=== PATIENT | male | born 1975 | race Caucasian/White ===

== ENCOUNTER → 2018-10-12 | Outpatient (CLI) | payer BC ==
--- NOTE | 2018-10-12 10:59 | US ---
EXAMINATION TYPE: US liver DATE OF EXAM: 10/12/2018 COMPARISON: NONE CLINICAL HISTORY: R79.9 Abnormal labs. EXAM MEASUREMENTS: Liver Length: 18.6 cm Gallbladder Wall: 0.2 cm CBD: 0.4 cm Right Kidney: 12.1 x 7.2 x 5.8 cm Pancreas: Obscured by bowel gas Liver: heterogeneous, increased attenuation, enlarged Gallbladder: wnl Evidence for sonographic Dillard's sign: No CBD: wnl Right Kidney: wnl IMPRESSION: 1. Hepatomegaly with heterogeneous pattern which is nonspecific and can be seen with hepatic steatosi s, hepatitis or diffuse hepatocellular disease. Correlate clinically.
== END | disposition home or self-care (01) ==
LOC: RADUSWWP 10:21
PROVIDERS: ATTEND Family Medicine
DX: R16.0 Hepatomegaly, not elsewhere classified (principal)
CPT/HCPCS: 76705

== ENCOUNTER → 2019-08-23 | Outpatient (CLI) | payer BC ==
--- NOTE | 2019-08-23 12:47 | CT ---
EXAMINATION TYPE: CT cervical spine wo con DATE OF EXAM: 08/23/2019 COMPARISON: None HISTORY: 44-year-old male neck pain post fall TECHNIQUE: Contiguous axial scanning of the cervical spine without IV contrast. Coronal and sagittal reconstructions performed. CT DLP: 2132.6 mGycm Automated exposure control for dose reduction was used. FINDINGS: Some asymmetric prominence to the left palatine tonsils with punctate calcifications, likely tonsilla r hypertrophy with prior infection. No craniocervical junction remotely, predental space widening, or prevertebral soft tissue swelling. Prominent artifacts relating to the patient's shoulders limit the C5-T1 levels. Allowing for this billingsley itation, no discrete fracture is identified. There is facet and uncovertebral joint degenerative change and mild to moderate degenerative disc dis ease. Exclude mild narrowing of the spinal canal at C5-C6 and C6/C7. At C5-C6, there is moderate to severe right and mild left neuroforaminal stenosis. IMPRESSION: 1. THE PATIENT WAS RESCANNED WITH HIGHER KVP DUE TO EXCESSIVE ARTIFACTS RELATED TO PATIENT SIZE. THER E ARE PERSISTENT ARTIFACTS LIMITING ASSESSMENT FROM THE C5 THROUGH THE T1 LEVELS. 2. ALLOWING FOR THIS LIMITATION, NO ACUTE FRACTURE OR MALALIGNMENT IS IDENTIFIED. 3. MODERATE SPONDYLOTIC CHANGE C5-C7 LEVELS. POSSIBLE UNDERLYING MILD SPINAL CANAL NARROWING ALONG TH KERA LEVELS. ON THE RIGHT AT C5-C6, THERE IS MODERATE TO SEVERE NEUROFORAMINAL STENOSIS. 4. IF PAIN IS DISPROPORTIONATE, CONSIDERATION COULD BE GIVEN TO MRI.
== END | disposition home or self-care (01) ==
LOC: RADCTMAIN 11:48
PROVIDERS: ATTEND Family Medicine
DX: M48.02 Spinal stenosis, cervical region (principal); M47.812 Spondylosis without myelopathy or radiculopathy, cervical region; G58.8 Other specified mononeuropathies
CPT/HCPCS: 72125

== ENCOUNTER 2019-09-20 14:12 | Inpatient (IN) | payer BC ==
[2019-09-20 16:58] VITALS: BMI 38.0
[2019-09-20] MEDS: methylPREDNISolone SOD SUCCI 125 MG/2 ML VIAL IV SCH ×2 (18:38→22:58)
[2019-09-20] MEDS: HYDROmorphone 1 MG/ML 1 ML SYRINGE IVP PRN ×2 (19:03→22:58)
[2019-09-20] MEDS: LISINOPRIL 20 MG TAB PO SCH (21:13)
[2019-09-20] MEDS: ATORVASTATIN 20 MG TAB PO SCH (21:13)
[2019-09-20] MEDS: DIVALPROEX 500 MG TABLET.DR PO SCH (21:13)
[2019-09-21] MEDS: HYDROmorphone 1 MG/ML 1 ML SYRINGE IVP PRN ×6 (03:16→20:52)
[2019-09-21] MEDS: LISINOPRIL 20 MG TAB PO SCH ×2 (10:01→20:51)
[2019-09-21] MEDS: ASPIRIN 81 MG PO SCH (10:01)
[2019-09-21] MEDS: amLODIPine 5 MG TAB PO SCH (10:01)
[2019-09-21] MEDS: methylPREDNISolone SOD SUCCI 125 MG/2 ML VIAL IV SCH ×3 (10:01→23:50)
[2019-09-21] MEDS: DIVALPROEX 500 MG TABLET.DR PO SCH ×2 (10:02→20:51)
[2019-09-21] MEDS: PANTOPRAZOLE 40 MG TABLET PO SCH (10:03)
[2019-09-21] MEDS ORDERED: PREGABALIN 75 MG CAP PO SCH (13:30)
--- NOTE | 2019-09-21 13:42 | HP ---
HISTORY AND PHYSICAL This 44-year-old white male admitted for 23-hours for ir-retractable pain, unable to lift his left arm with no limited movement in his arm, unable to make a grasp. He is dropping everything in his left arm. He failed trigger point shots and failed outpatient treatment with steroids and anti-inflammatories. He is unable to move his neck. He had a recent cervical spine CAT scan, moderate to severe right and mild left neuroforaminal stenosis. Due to inability to move his head and neck, and left his arms, he was admitted for epidural steroid injection and IV steroids and IV pain medicines. He is requiring large amounts of pain medicine and steroids in the hospital, waiting for cervical epidural and Dr. Ahmadi has evaluation as well as Radiology evaluation. Please see CAT scan of the cervical spine done on 08/26/2019. He has a history of hypertension, dyslipidemia, obesity, mood disorder, GERD. He is on: 1. Protonix 40 mg daily. 2. Atorvastatin 20 mg daily. 3. Depakote 500 b.i.d. 4. Lisinopril 20 mg b.i.d. 5. Aspirin 81 mg daily. REVIEW OF SYSTEMS: Fourteen-point review of systems negative except for limited motion of his arms and turning of his neck due to serious severe muscle spasms and cervical neuropathy at C5- C6 seen on CAT scan. He needs an epidural shot, possibly surgery. He will be admitted with IV steroids and pain medications. PHYSICAL EXAMINATION: VITAL SIGNS: Temp 98.6, blood pressure 130s over 80s up to 150s over 80s, O2 95% on room air. MUSCULOSKELETAL: Tug Hand strength is 3/5 in his left hand for 3-1/2 to 4/5 on his right hand. Significant tenderness to palpation bilateral cervical spinal muscles radiating down to the shoulders posteriorly. Limited range of motion of the neck 20 degrees to the left, 10 degrees to the right. ENDOCRINE: BMI is over 40. PSYCH: He appears anxious and nervous and in serious amount of pain. He looks uncomfortable. CARDIOVASCULAR: S1, S2. GI: Soft. No mass. HEMATOLOGIC: 1 to 2+ pedal edema. ASSESSMENT: 1. Acute cervical radiculopathy of severe nature. 2. Ir-retractable pain syndrome secondary to above. 3. Significant cervical stenosis. He will need IV steroids, IV pain medicines, epidural injection, possible neck surgery. Awaiting Radiology consult and Neurosurgery consult. Remains on IV steroids and IV pain medicine at this time. MMODL / IJN: [id number] /
[2019-09-21] MEDS: tiZANidine 4 MG TAB PO PRN (14:15)
[2019-09-21 15:10] LABS: Basophils # (A) 0.3 k/uL (0-0.2); Basophils % (A) 2 %; Eosinophils # (A) 0.1 k/uL (0-0.7); Eosinophils % (A) 0 %; HCT 42.5 % (39.0-53.0); HGB 14.3 gm/dL (13.0-17.5); Lymphocytes # (A) 0.9 k/uL (1.0-4.8); Lymphocytes % (A) 6 %; MCH 32.2 pg (25.0-35.0); MCHC 33.5 g/dL (31.0-37.0); Mean Platelet Volume 7.2; Monocytes # (A) 0.5 k/uL (0-1.0); Monocytes % (A) 4 %; Neutrophils # (A) 13.6 k/uL (1.3-7.7); Neutrophils % (A) 87 %; Platelet Count 231 k/uL (150-450); RBC 4.43 m/uL (4.30-5.90); RDW 12.2 % (11.5-15.5); WBC 15.6 k/uL (3.8-10.6)
[2019-09-21 15:12] LABS: ALT 79 U/L (21-72); AST 34 U/L (17-59); African American GFR (CKD) >90 (>60 ml/min/1.73 sqM); Albumin 3.8 g/dL (3.5-5.0); Alkaline Phosphatase 49 U/L (38-126); Anion Gap 10 mmol/L; Blood Urea Nitrogen 23 mg/dL (9-20); Calcium 9.6 mg/dL (8.4-10.2); Carbon Dioxide 30 mmol/L (22-30); Chloride 97 mmol/L (98-107); Glucose 289 mg/dL (74-99); Potassium 4.6 mmol/L (3.5-5.1); Sodium 137 mmol/L (137-145); Total Bilirubin 0.4 mg/dL (0.2-1.3); Total Protein 6.3 g/dL (6.3-8.2)
[2019-09-21] MEDS ORDERED: NON FORMULARY DRUG (Omeprazole [Omeprazole] 20 MG) PO SCH (15:30)
[2019-09-21] MEDS ORDERED: amLODIPine 5 MG TAB PO SCH (15:30)
--- NOTE | 2019-09-21 15:31 | P.PAINCN ---
History of Present Illness - Reason for Consult Consult date: 09/21/19 - History of Present Illness This is initial consultation visit for this 44 years old male, with a two-month history of severe neck pain with radiation to the left upper extremity associated with numbness and tingling sensation, the pain is constant and interferes with the quality of life, pain increased significantly over the last couple of weeks, is not relieved with the pain medication patient currently on Dilaudid 1 mg every 4 hours and he is on Zanaflex 4 mg every 8 hours and Lyrica 75 mg, he continued to have severe pain, some weakness in his left upper extremity she denies any fever or night sweats he denies any change in the bowel movements or urination Past Medical History Past Medical History: Cancer, GERD/Reflux, Hypertension, Sleep Apnea/CPAP/BIPAP Additional Past Medical History / Comment(s): neck pain for several several lmonths, testicular cancer, chemotherapy in the past History of Any Multi-Drug Resistant Organisms: None Reported Past Surgical History: Appendectomy Additional Past Surgical History / Comment(s): left leg fracture with repair Past Anesthesia/Blood Transfusion Reactions: No Reported Reaction Past Psychological History: Anxiety Smoking Status: Heavy tobacco smoker Medications and Allergies Home Medications Medication Instructions Recorded Confirmed Type Aspirin EC [Ecotrin Low Dose] 81 mg PO DAILY 09/20/19 09/20/19 History Atorvastatin [Lipitor] 20 mg PO HS 09/20/19 09/20/19 History Divalproex Sodium [Depakote] 500 mg PO BID 09/20/19 09/20/19 History Lisinopril 20 mg PO BID 09/20/19 09/20/19 History Omeprazole 20 mg PO DAILY 09/20/19 09/20/19 History Ubidecarenone [Co Q-10] 100 mg PO DAILY 09/20/19 09/20/19 History amLODIPine [Norvasc] 5 mg PO DAILY 09/20/19 09/20/19 History Allergies Allergy/AdvReac Type Severity Reaction Status Date / Time Penicillins Allergy Unknown Verified 09/20/19 17:08 Childhood Physical Exam Vitals: Vital Signs Temp Pulse Resp BP Pulse Ox 09/21/19 12:00 97.4 F L 76 20 153/88 98 09/21/19 08:00 76 20 09/21/19 04:56 97.6 F 86 18 159/75 96 09/20/19 21:30 98.0 F 94 18 185/89 97 09/20/19 16:24 98.6 F 91 16 137/81 95 Intake and Output 09/21/19 09/21/19 09/21/19 06:59 14:59 22:59 Intake Total 900 Output Total 2 Balance -2 900 Intake: Oral 900 Output: Urine 2 Other: # Voids 4 REVIEW OF ORGAN SYSTEMS: CONSTITUTIONAL: No fevers or chills. No recent weight loss. EYES: History of troubles with vision. No glasses. HEENT: No difficulties with hearing. No nosebleeds. No difficulty swallowing. RESPIRATORY: Past pneumonia. Denies any troubles with breat tammy or dyspnea on exertion. CARDIOVASCULAR: Denies any chest pain, palpitations, or recent heart attacks. GASTROINTESTINAL: Denies fatty food intolerance. Has change in bowel habits and gas bloat. GENITOURINARY: Denies any blood in urine. Has increased urinary frequency. NEUROLOGICAL: Reports numbness and tingling along the left upper extremities. Some weakness in the left hand. MUSCULOSKELETAL: Has neck pain. SKIN: Past t skin cancer. No rash. PSYCHIATRIC: Denies current depression or suicidal thoughts. ENDOCRINE: Denies current thyroid disorders. Denies any blood sugar glucose intolerance. HEME/LYMPHATIC: Denies any lumps and bumps around the neck. History of deep venous thrombosis. ALLERGY/IMMUNOLOGY: No immunoglobulin therapy. No immune deficiencies. BREAST: Denies current breast lumps, pain or nipple discharge. Physical Examinations : Constitutiona : Cooperative , not in acute distress . HEENT : nech : supple , no Lymphadenopathy , normal thyroid size . eyes : no ptosis , no icterus, no photopho chavo . ENT : normal of hearing , normal oropharynx , no Thrush . Respiratory : Chest clear to auscultations Bilaterally , no wheezing , no Rhonchi . Cardiovascula : regular rate and rhythem , S1 , S2 , no S3 , no S4. Gastrointestina : abdomen soft no tenderness , bowel so unds , no organomegally . Genitourinary : Defferred . neurologic : Cranial nerve II to XII intact , no focal neurological deffecit . psychatric : alert , oriented X 3 , appropriate affect , intact judgment and insight . Lymphatic : no Lymphadenopathy . musculoskeltal : Cervical Spine motor stregnth in the deltoid and biceps, normal right side , 4/5 Left side motor stregnth biceps and the wrist extensors normal right side ,4/5 left side . motor stregnth in the triceps muscle . normal Right side , 4/5 Left side Positive paresthesia at the dermatomal distribution left side 5, 6 and 7 deep tendon reflexes normal at the biceps , normal at Brachioradialis , normal at triceps. cervical facet loading test: Positive Bilateraly Spurling test positive left side. Neck distraction test positive left Summer sign positive left side Lumber spine moter stegnth lower extremities ,thigh and legs 5/5 Right side , 5/5 Left side Results CBC & Chem 7: 09/21/19 14:44 09/21/19 14:44 Labs: Abnormal Lab Results - Last 24 Hours (Table) 09/21/19 09/21/19 Range/Units 14:44 14:44 WBC 15.6 H (3.8-10.6) k/uL Neutrophils # 13.6 H (1.3-7.7) k/uL Lymphocytes # 0.9 L (1.0-4.8) k/uL Basophils # 0.3 H (0-0.2) k/uL Chloride 97 L (98-107) mmol/L BUN 23 H (9-20) mg/dL Glucose 289 H (74-99) mg/dL ALT 79 H (21-72) U/L Comments: Computed tomography scan of the cervical spine C5 6 C6 7 degeneration and facet arthropathy at C5 6 foraminal stenosis Assessment and Plan Plan: Assessment and plan= cervical radiculopathy Cervical spinal stenosis. Cervical spondylosis Patient could benefit from cervical epidural steroid injection and C6-7 or C7-T1 under fluoroscopy guidance, the seizure risk and benefits discussed with the patient he agreed with the preceding Time with Patient: Greater than 30 PQRS Measure Charge Sheet PQRS Narrative: Smoking Status Heavy tobacco smoker Blood Pressure [Right Arm] 153/88 Pain Intensity [Left Neck] 9 Pain Intensity 8 Pain Scale Used Numeric (1 - 10) Scale Used Numeric (1 - 10) Home Medications: Ambulatory Orders Aspirin EC [Ecotrin Low Dose] 81 mg PO DAILY 09/20/19 Atorvastatin [Lipitor] 20 mg PO HS 09/20/19 Divalproex Sodium [Depakote] 500 mg PO BID 09/20/19 Lisinopril 20 mg PO BID 09/20/19 Omeprazole 20 mg PO DAILY 09/20/19 Ubidecarenone [Co Q-10] 100 mg PO DAILY 09/20/19 amLODIPine [Norvasc] 5 mg PO DAILY 09/20/19
--- NOTE | 2019-09-21 16:36 | P.CNOR ---
History of Present Illness - [facility] Consult date: 09/21/19 Requesting physician: Bryan Guerrier Consult reason: neck pain, other (Left upper extremity weakness with radiculopa thy) History of present illness: Patient is a very pleasant 44-year-old male who is seen and examined at the bedside for further evaluation for cervical pain with severe left upper extremity radiculopathy and weakness. He states approximately 6 weeks ago he began to experience some pain in the left upper extremity. He's had some ongoing cervical pain. 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 He states approximately a week later, over the past 3 weeks, he has been experiencing worsening pain with the left upper extremity. He states the pain radiates from the cervical spine, over the left shoulder, down the triceps, down the forearm, into the left middle finger, ring finger, and pinky finger. His pain has been debilitating. Yesterday he presented to his primary care provider's office for further evaluation. He was direct admitted to the hospital for further evaluation with orthopedic spine and pain management. He has been started on Solu-Medrol. He presented had a CT of the cervical spine performed in July 2019. He states he is having difficulty working in regular activities of daily living given his symptoms. He has weakness with his left upper extremity. He denies any right upper extremity weakness or radiculopathy. Patient does have a medical history of hypertension, dyslipidemia, obesity, mood disorder, and GERD. Patient has been seen and examined today by pain management who states he would be a candidate for ep idural injections. Past Medical History Past Medical History: Cancer, GERD/Reflux, Hypertension, Sleep Apnea/CPAP/BIPAP Additional Past Medical History / Comment(s): neck pain for several several lmonths, testicular cancer, chemotherapy in the past History of Any Multi-Drug Resistant Organisms: None Reported Past Surgical History: Appendectomy Additional Past Surgical History / Comment(s): left leg fracture with repair Past Anesthesia/Blood Transfusion Reactions: No Reported Reaction Past Psychological History: Anxiety Smoking Status: Heavy tobacco smoker Medications and Allergies Home Medications Medication Instructions Recorded Confirmed Type Aspirin EC [Ecotrin Low Dose] 81 mg PO DAILY 09/20/19 09/20/19 History Atorvastatin [Lipitor] 20 mg PO HS 09/20/19 09/20/19 History Divalproex Sodium [Depakote] 500 mg PO BID 09/20/19 09/20/19 History Lisinopril 20 mg PO BID 09/20/19 09/20/19 History Omeprazole 20 mg PO DAILY 09/20/19 09/20/19 History Ubidecarenone [Co Q-10] 100 mg PO DAILY 09/20/19 09/20/19 History amLODIPine [Norvasc] 5 mg PO DAILY 09/20/19 09/20/19 History Allergies Allergy/AdvReac Type Severity Reaction Status Date / Time Penicillins Allergy Unknown Verified 09/20/19 17:08 Childhood Physical Examination Physical exam: Patient is awake, alert, and oriented 3 Vital signs stable Good chest excursion with deep inspiration and expiration Examination of the cervical spine reveals skin is intact with no abrasions, lacerations, or bruises; no erythema, purulence or signs of infection Stiff and somewhat reduced of motion of the cervical spine with adequate flexion, extension, and bilateral rotation Increased cervical pain throughout range of motion of the cervical spine Cash Analyst strength, thumb strength, interosseous strength, biceps strength, triceps strength, and shoulder strength positive sustained 5/5 strength on the right Motor strength upper extremity is 3/5 including electronic installer, interossei, and thumb extension on the left Motor strength the upper extremity is 4+/5 including biceps, deltoids and triceps on the left Increased pain with shoulder abduction against resistance Biceps reflex 2+ bilaterally and Brachioradialis reflexes 2+ bilaterally No upper extremity hyperreflexia bilaterally Hoffmans sign negative upper extremities bilaterally Results Pertinent studies: CT of the cervical spine taken on 08/23/2019: C5-6 and C6-7 degenerative disc disease; Degenerative disc disease, facet arthropathy, and uncovertebral joint disease resulting in C5-C6 spinal canal narrowing and severe right mild left neural foraminal stenosis; excessive artifact limiting assessment C5-T1 - Labs Labs: Abnormal Lab Results - Last 24 Hours (Table) 09/21/19 09/21/19 Range/Units 14:44 14:44 WBC 15.6 H (3.8-10.6) k/uL Neutrophils # 13.6 H (1.3-7.7) k/uL Lymphocytes # 0.9 L (1.0-4.8) k/uL Basophils # 0.3 H (0-0.2) k/uL Chloride 97 L (98-107) mmol/L BUN 23 H (9-20) mg/dL Glucose 289 H (74-99) mg/dL ALT 79 H (21-72) U/L H & H 09/21/19 Range/Units 14:44 Hgb 14.3 (13.0-17.5) gm/dL Hct 42.5 (39.0-53.0) % Result Diagrams: 09/21/19 14:44 09/21/19 14:44 Assessment and Plan Assessment: Assessment: Cervicalgia Acute severe left upper extremity radiculopathy with weakness Cervical degenerative disc disease C5-6 and C6-7 Cervical facet arthropathy History of hypertension, dyslipidemia, obesity, mood disorder, and GERD (1) Cervicalgia Current Visit: Yes Status: Acute Code(s): M54.2 - CERVICALGIA SNOMED Code(s): 96904777 (2) Left arm weakness Current Visit: Yes Status: Acute Code(s): R29.898 - OTH SYMPTOMS AND SIGNS INVOLVING THE MUSCULOSKELETAL SYSTEM SNOMED Code(s): 420831812 (3) Radiculopathy affecting upper extremity Current Visit: Yes Status: Acute Code(s): M54.10 - RADICULOPATHY, SITE UNSPECIFIED SNOMED Code(s): 47465537 (4) Degeneration of C5-C6 intervertebral disc Current Visit: Yes Status: Acute Code(s): M50.322 - OTHER CERVICAL DISC DEGENERATION AT C5-C6 LEVEL SNOMED Code(s): 46101585 (5) Degeneration of intervertebral disc at C6-C7 level Current Visit: Yes Status: Acute Code(s): M50.323 - OTHER CERVICAL DISC DEGENERATION AT C6-C7 LEVEL SNOMED Code(s): 80109752 (6) Cervical spondylosis Current Visit: Yes Status: Acute Code(s): M47.812 - SPONDYLOSIS W/O MYELOPATHY OR RADICULOPATHY, CERVICAL REGION SNOMED Code(s): 446079832 (7) Hypertension Current Visit: Yes Status: Acute Code(s): I10 - ESSENTIAL (PRIMARY) HYPE RTENSION SNOMED Code(s): 71498412 (8) Dyslipidemia Current Visit: Yes Status: Acute Code(s): E78.5 - HYPERLIPIDEMIA, UNSPECIFIED SNOMED Code(s): 639135809 (9) Obesity (BMI 35.0-39.9 without comorbidity) Current Visit: Yes Status: Acute Code(s): E66.9 - OBESITY, UNSPECIFIED SNOMED Code(s): 411672869 (10) History of mood disorder Current Visit: Yes Status: Acute Code(s): Z86.59 - PERSONAL HISTORY OF OTHER MENTAL AND BEHAVIORAL DISORDERS SNOMED Code(s): 583170391 (11) History of gastroesophageal reflux (GERD) Current Visit: Yes Status: Acute Code(s): Z87.19 - PERSONAL HISTORY OF OTHER DISEASES OF THE DIGESTIVE SYSTEM SNOMED Code(s): 09711662064081 Plan: Plan: 1. After physical examination of the patient, reviewing the previous imaging, further discussion with Dr. Akshat Ahmadi, and further discussion with the patient, we'll currently planned to obtain an MRI of the cervical spine for further evaluation. We'll discuss further treatment options proceeding forward following the completion and review of the cervical MRI. We did discuss he could benefit with treatment from pain management. He has been seen and exam ined by pain management and states he would be a candidate for epidural injections. Patient has agreed to proceed forward injections. At this time it would be okay for the patient to be discharged home if his pain is able to be adequately controlled. If he were to fail conservative treatment options and there are indications which we feel surgical intervention could provide some improvement of the symptoms, we could plan to proceed forward with surgical intervention as early as next week. If the patient is able to be discharged, we may plan have the patient follow-up in approximately 1 week for further treatment and evaluation in the outpatient setting. Following discharge patient may follow-up with Camilo Lilly PA-C or Dr. Akshat Ahmadi at [facility]. Patient does state he has multiple family members who've had been previously treated by Dr. Serna. We did discuss if he would prefer treatment with Dr. Serna, that would be an appropriate plan of care as well. 2. Patient will continue be seen examined by medicine for his other medical diagnoses 3. Patient has been seen examined by pain management who is currently planning to proceed forward epidural injections 4. Patient currently waiting for cervical MRI Time with Patient: Greater than 30 (Including obtaining history, physical examination, reviewing of imaging, and dictation.)
--- NOTE | 2019-09-21 17:05 | MR ---
EXAMINATION TYPE: MR cervical spine wo con DATE OF EXAM: 09/21/2019 COMPARISON: HISTORY: Cervical disc herniation and upper extremity radic TECHNIQUE: Multiplanar, multisequence images of the cervical spine were acquired. Cervical vertebra have normal alignment. There is some degenerative disc space narrowing at C5-6 and C6-7 with slight decreased signal in the discs. There are very small posterior disc bulges at C4-5 C5 -C6 C6-7. At C7-T1 there is a moderate size disc herniation posteriorly on the left side encroaching on the neural foramen. The cervical spinal cord has normal signal pattern. There is no evidence of ed mayela. There is no compression fracture. The brainstem is intact. I see no focal bone destruction. Ther e is no evidence of cervical paraspinal mass. IMPRESSION: Mild spondylotic changes at C5-6 C6-7 with small posterior disc bulging. There is moderate-sized post erior left side C7-T1 disc herniation with neural foraminal impingement. Spinal canal is narrowed to 8 mm at C5-6. No significant stenosis.
[2019-09-21 17:20] LABS: Glucose,Whole Blood 344 mg/dL (75-99)
[2019-09-21] MEDS ORDERED: INSULIN ASPART (NovoLOG) 100 UNIT/ML VIAL SQ SCH (17:30)
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
[2019-09-21] MEDS: GABAPENTIN 300 MG CAP PO SCH (19:13)
[2019-09-21] MEDS: MELOXICAM 7.5 MG TAB PO SCH (19:13)
[2019-09-21 19:48] LABS: Glucose,Whole Blood 319 mg/dL (75-99)
[2019-09-21] MEDS: ATORVASTATIN 20 MG TAB PO SCH (20:51)
[2019-09-21] MEDS: ALPRAZolam 1 MG TAB PO PRN (20:52)
[2019-09-21] MEDS: INSULIN ASPART (NovoLOG) 100 UNIT/ML VIAL SQ SCH (20:53)
[2019-09-21] MEDS ORDERED: DIVALPROEX 500 MG TABLET.DR PO SCH (21:00)
[2019-09-21] MEDS ORDERED: ATORVASTATIN 20 MG TAB PO SCH (21:00)
[2019-09-22] MEDS: HYDROmorphone 1 MG/ML 1 ML SYRINGE IVP PRN ×7 (02:01→23:50)
[2019-09-22 07:14] LABS: Glucose,Whole Blood 189 mg/dL (75-99)
[2019-09-22] MEDS: methylPREDNISolone SOD SUCCI 125 MG/2 ML VIAL IV SCH ×3 (07:55→23:47)
[2019-09-22] MEDS: INSULIN ASPART (NovoLOG) 100 UNIT/ML VIAL SQ SCH ×4 (07:58→20:58)
[2019-09-22 08:37] LABS: ALT 80 U/L (21-72); AST 26 U/L (17-59); African American GFR (CKD) >90 (>60 ml/min/1.73 sqM); Albumin 3.7 g/dL (3.5-5.0); Alkaline Phosphatase 54 U/L (38-126); Anion Gap 7 mmol/L; Blood Urea Nitrogen 35 mg/dL (9-20); Calcium 9.8 mg/dL (8.4-10.2); Carbon Dioxide 34 mmol/L (22-30); Chloride 99 mmol/L (98-107); Glucose 209 mg/dL (74-99); Potassium 4.8 mmol/L (3.5-5.1); Sodium 140 mmol/L (137-145); Total Bilirubin 0.3 mg/dL (0.2-1.3)
[2019-09-22 08:50] LABS: Basophils # (A) 0.2 k/uL (0-0.2); Basophils % (A) 1 %; Eosinophils % (A) 0 %; HCT 41.8 % (39.0-53.0); HGB 13.6 gm/dL (13.0-17.5); Lymphocytes % (A) 6 %; MCH 31.1 pg (25.0-35.0); MCHC 32.6 g/dL (31.0-37.0); MCV 95.4 fL (80.0-100.0); Mean Platelet Volume 6.6; Monocytes # (A) 0.7 k/uL (0-1.0); Monocytes % (A) 4 %; Neutrophils # (A) 14.4 k/uL (1.3-7.7); Neutrophils % (A) 88 %; Platelet Count 237 k/uL (150-450); RBC 4.39 m/uL (4.30-5.90); RDW 12.3 % (11.5-15.5); WBC 16.4 k/uL (3.8-10.6)
[2019-09-22] MEDS: GABAPENTIN 300 MG CAP PO SCH ×3 (08:53→20:53)
[2019-09-22] MEDS: amLODIPine 5 MG TAB PO SCH (08:53)
[2019-09-22] MEDS: LISINOPRIL 20 MG TAB PO SCH ×2 (08:53→20:53)
[2019-09-22] MEDS: DIVALPROEX 500 MG TABLET.DR PO SCH ×2 (08:53→22:04)
[2019-09-22] MEDS: MELOXICAM 7.5 MG TAB PO SCH (08:53)
[2019-09-22] MEDS: PANTOPRAZOLE 40 MG TABLET PO SCH (08:53)
[2019-09-22] MEDS: ASPIRIN 81 MG PO SCH (09:17)
--- NOTE | 2019-09-22 09:18 | P.PN ---
Subjective Progress Note Date: 09/22/19 Principal diagnosis: Left upper extremity weakness with radiculopathy The patient is a 44-year-old male who presented to the hospital with neck pain and increasing weakness to the left upper extremity. Patient was evaluated yesterday and a cervical MRI was ordered. Patient was also seen by pain management and is currently scheduled for a injection by anesthesia today. Today, the patient states that he is still in severe pain without much relief since admission. No new complaints today. Objective - Vital Signs Vital signs: Vital Signs Temp 98.6 F 09/22/19 05:00 Pulse 86 09/22/19 05:00 Resp 16 09/22/19 05:00 BP 155/79 09/22/19 05:00 Pulse Ox 95 09/22/19 05:00 Intake & Output 09/21/19 09/22/19 09/22/19 18:59 06:59 18:59 Intake Total 900 2120 Balance 900 2120 Intake: Oral 900 2120 Other: Voiding Method Toilet # Voids 2 - Exam The patient is a pleasant 44-year-old male who is in no acute distress. He is alert and oriented 3. Exam of the cervical spine reveals the skin is intact with no abrasions, ecchymosis or erythema. Stiff and somewhat reduced range of motion of the cervical spine with pain. There is decreased motor strength on the left compared to the right recent increased pain upon shoulder abduction against resistance. No hyperflexia noted. There is decreased sensation to the left upper extremity as well. Circulatory status is intact. Hands are warm and well perfused. Radial pulses are strong bilaterally. Capillary refill <2 seconds. - Labs CBC & Chem 7: 09/22/19 07:51 09/22/19 07:51 Labs: Abnormal Lab Results - Last 24 Hours (Table) 09/21/19 09/21/19 09/21/19 Range/Units 14:44 14:44 17:19 WBC 15.6 H (3.8-10.6) k/uL Neutrophils # 13.6 H (1.3-7.7) k/uL Lymphocytes # 0.9 L (1.0-4.8) k/uL Basophils # 0.3 H (0-0.2) k/uL Chloride 97 L (98-107) mmol/L Carbon Dioxide (22-30) mmol/L BUN 23 H (9-20) mg/dL Glucose 289 H (74-99) mg/dL POC Glucose (mg/dL) 344 H (75-99) mg/dL ALT 79 H (21-72) U/L Total Protein (6.3-8.2) g/dL 09/21/19 09/22/19 09/22/19 Range/Units 19:47 07:12 07:51 WBC 16.4 H (3.8-10.6) k/uL Neutrophils # (1.3-7.7) k/uL Lymphocytes # (1.0-4.8) k/uL Basophils # (0-0.2) k/uL Chloride (98-107) mmol/L Carbon Dioxide (22-30) mmol/L BUN (9-20) mg/dL Glucose (74-99) mg/dL POC Glucose (mg/dL) 319 H 189 H (75-99) mg/dL ALT (21-72) U/L Total Protein (6.3-8.2) g/dL 09/22/19 Range/Units 07:51 WBC (3.8-10.6) k/uL Neutrophils # (1.3-7.7) k/uL Lymphocytes # (1.0-4.8) k/uL Basophils # (0-0.2) k/uL Chloride (98-107) mmol/L Carbon Dioxide 34 H (22-30) mmol/L BUN 35 H (9-20) mg/dL Glucose 209 H (74-99) mg/dL POC Glucose (mg/dL) (75-99) mg/dL ALT 80 H (21-72) U/L Total Protein 6.0 L (6.3-8.2) g/dL Assessment and Plan (1) Cervical spondylosis Current Visit: Yes Status: Acute Code(s): M47.812 - SPONDYLOSIS W/O MYELOPATHY OR RADICULOPATHY, CERVICAL REGION SNOMED Code(s): 731169341 (2) Cervicalgia Current Visit: Yes Status: Acute Code(s): M54.2 - CERVICALGIA SNOMED Code(s): 00779519 (3) Degeneration of C5-C6 intervertebral disc Current Visit: Yes Status: Acute Code(s): M50.322 - OTHER CERVICAL DISC DEGENERATION AT C5-C6 LEVEL SNOMED Code(s): 10780460 (4) Degeneration of intervertebral disc at C6-C7 level Current Visit: Yes Status: Acute Code(s): M50.323 - OTHER CERVICAL DISC DEGENERATION AT C6-C7 LEVEL SNOMED Code(s): 45444650 (5) Left arm weakness Current Visit: Yes Status: Acute Code(s): R29.898 - OTH SYMPTOMS AND SIGNS INVOLVING THE MUSCULOSKELETAL SYSTEM SNOMED Code(s): 379917553 Plan: The clinical and MRI findings were discussed with the patient. The patient is scheduled for a epidural injection by anesthesia services today. We will await The injection and see how the patient's symptoms and pain resolve. If his pain has improved significantly, the patient would like to be discharged home today with follow-up on an outpatient basis either with Dr. Akshat Ahmadi or Dr. Serna. If his pain does not improve after the injection, patient will most likely remain in hospital for further pain management and possible surgical intervention early next week with Dr. Ahmadi or transfer care to Dr. Serna depending on the patient's request. We will continue to follow patient closely and make further recommendations as needed.
[2019-09-22] MEDS ORDERED: LACTATED RINGERS 1,000 ML IV ONE (10:02)
--- NOTE | 2019-09-22 11:04 | P.PCN ---
Date of Procedure: 09/22/19 Procedure(s) Performed: . PROCEDURE 1. Cervical epidural steroid injection under fluoroscopic guidance, C7-T1 (fluoroscopy images available in the radiology department ) 2. Cervical epidurogram. PREOPERATIVE DIAGNOSIS: 1- Cervical herniated Disc Diseases 2- Cervical radiculopathy., 3-cervical spondylosis with cervical Facet arthropathy without myelopathy POSTOPERATIVE DIAGNOSIS: : 1- Cervical herniated Disc Diseases , 2- Cervical radiculopathy. 3-,cervical spondylosis with cervical Facet arthropathy without myelopathy ANESTHESIA: Local anesthesia with lidocaine 1 % , and moderate sedation, with Versed 2 mg and Fentanyl 50 mcg. EBL 0 PROCEDURE INDICATION: The patient with neck pain and radiculitis unresponsive to conservative treatment consents for procedure. PROCEDURE DESCRIPTION / TECHNIQUE: The patient was seen and identified in the preoperative area. Risks, benefits, complications, including but not limited to infections ,bleeding , allergic reactions to the medications ,and not complete pain releife, and alternatives were discussed with the patient, the patient a greed to proceed with the procedure and signed the consent. Patient was taken to the OR and time out was completed. The patient was placed in the prone position on the procedure table. A pillow was placed under the patients chest to increase the cervical interlaminar space. The cervical area was prepped and draped in the usual sterile fashion. Vital signs were closely monitored during the procedure. Conscious sedation was used during the procedure to decrease patients anxiety. Using anterior-posterior fluoroscopy, the C7-T1 interlaminar space was identified and the skin over this site was marked and then infiltrated with 1% lidocaine subcutaneously. Subsequently, a 20-gauge 3-1/2-inch Tuohy epidural needle was inserted and advanced toward the epidural space by means of the ``hanging-drop technique and guided by AP and lateral fluoroscopy. The correct needle position in the epidural space was verified with the injection of 2 mL of the water soluble contrast dye Isovue-200 and observing an excellent epidurogram with the epidural spread of the dye, after negative aspiration for blood and CSF and in the absence of paresthesias. Again after negative aspiration, mixture containing 20 mg Dexamethasone and 2 ml of preservative- free normal saline injected and a washout of epidurogram was seen. Needle was withdrawn intact, skin was cleansed, and bandages were applied. Complications= none. Disposition= patient was placed in supine position and transferred to the recovery room area in stable condition and there was no evidence of upper or lower extremity motor or sensory deficit after the procedure patient was discharged from recovery room after discharge criteria met and home discharge instructions was given by the staff and patient will follow with the pain clinic in 2-4 weeks
[2019-09-22] MEDS: tiZANidine 4 MG TAB PO PRN ×2 (12:04→18:00)
[2019-09-22 12:18] LABS: Glucose,Whole Blood 183 mg/dL (75-99)
--- NOTE | 2019-09-22 12:21 | FL ---
Fluoroscopy INDICATION: Pain FINDINGS: Fluoroscopy time: 6 seconds. Images obtained: One. IMPRESSIONS: 1. Documentation of fluoroscopy.
[2019-09-22 17:09] LABS: Glucose,Whole Blood 300 mg/dL (75-99)
--- NOTE | 2019-09-22 17:10 | P.PN ---
Subjective Progress Note Date: 09/22/19 Patient underwent cervical epidural corticosteroid injection at C7-T1 level. He states that his left arm feels numb, and the pain has improved, but it could be the effect of medication. He still has weakness of the left hand. No new concerns. Patient is tolerating gabapentin and Mobic well. Objective - Vital Signs Vital signs: Vital Signs Temp 98.0 F 09/22/19 11:35 Pulse 89 09/22/19 11:35 Resp 16 09/22/19 11:35 BP 173/95 09/22/19 11:35 Pulse Ox 95 09/22/19 11:35 Intake & Output 09/21/19 09/22/19 09/22/19 18:59 06:59 18:59 Intake Total 900 2120 100 Balance 900 2120 100 Weight 119.748 kg Intake: IV 100 Oral 900 2120 Other: Voiding Method Toilet # Voids 2 1 - Exam Patient's mental status, speech and language functions are normal. Cranial nerves are normal. Muscle strength is normal in the right arm and both legs. On the left side, his deltoid, biceps, triceps, wrist extension, wrist flexion are normal. Finger extension is 4-, interossei 3, overall mainly weakness in C8 root muscles. - Labs CBC & Chem 7: 09/22/19 07:51 09/22/19 07:51 Labs: Abnormal Lab Results - Last 24 Hours (Table) 09/21/19 09/21/19 09/22/19 Range/Units 17:19 19:47 07:12 WBC (3.8-10.6) k/uL Neutrophils # (1.3-7.7) k/uL Carbon Dioxide (22-30) mmol/L BUN (9-20) mg/dL Glucose (74-99) mg/dL POC Glucose (mg/dL) 344 H 319 H 189 H (75-99) mg/dL ALT (21-72) U/L Total Protein (6.3-8.2) g/dL 09/22/19 09/22/19 09/22/19 Range/Units 07:51 07:51 12:17 WBC 16.4 H (3.8-10.6) k/uL Neutrophils # 14.4 H (1.3-7.7) k/uL Carbon Dioxide 34 H (22-30) mmol/L BUN 35 H (9-20) mg/dL Glucose 209 H (74-99) mg/dL POC Glucose (mg/dL) 183 H (75-99) mg/dL ALT 80 H (21-72) U/L Total Protein 6.0 L (6.3-8.2) g/dL Assessment and Plan Assessment: * Acute cervical radiculopathy, probably left C8 nerve root impingement. MRI showed acute cervical disc herniation, left paracentral at C7-T1 level. * Moderate spinal stenosis at C5-6, not symptomatic at this time. Plan: * Patient is status post cervical epidural corticosteroid injection at C7-T1 level. * Patient has developed significant weakness in the left hand. Orthopedic spine following. * PT OT for hand and arm strengthening. * Continue Mobic 15 mg daily for cervical spondylosis and radiculopathy. * Continue gabapentin 300 mg 3 times a day for neuropathic pain. We will stop Lyrica as he states it has not helped much. * Patient will need EMG and nerve conductions of left upper extremity to assess for cervical radiculopathy.
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
[2019-09-22 19:50] LABS: Glucose,Whole Blood 340 mg/dL (75-99)
[2019-09-22 20:16] LABS: Hemoglobin A1C 7.4 % (4.0-6.0)
[2019-09-22] MEDS: ALPRAZolam 1 MG TAB PO PRN (20:53)
[2019-09-22] MEDS: ATORVASTATIN 20 MG TAB PO SCH (20:53)
[2019-09-23] MEDS: HYDROmorphone 1 MG/ML 1 ML SYRINGE IVP PRN ×3 (02:32→08:06)
[2019-09-23] MEDS: tiZANidine 4 MG TAB PO PRN (07:00)
[2019-09-23] MEDS: PANTOPRAZOLE 40 MG TABLET PO SCH (07:00)
[2019-09-23 07:14] LABS: Glucose,Whole Blood 194 mg/dL (75-99)
[2019-09-23] MEDS: INSULIN ASPART (NovoLOG) 100 UNIT/ML VIAL SQ SCH ×2 (07:56→12:43)
[2019-09-23] MEDS: methylPREDNISolone SOD SUCCI 125 MG/2 ML VIAL IV SCH ×2 (07:57→15:04)
[2019-09-23] MEDS: MELOXICAM 7.5 MG TAB PO SCH (08:01)
[2019-09-23] MEDS: GABAPENTIN 300 MG CAP PO SCH (08:01)
[2019-09-23] MEDS: LISINOPRIL 20 MG TAB PO SCH (08:02)
[2019-09-23] MEDS: ASPIRIN 81 MG PO SCH (08:02)
[2019-09-23] MEDS: DIVALPROEX 500 MG TABLET.DR PO SCH (08:02)
[2019-09-23] MEDS: amLODIPine 5 MG TAB PO SCH (08:02)
[2019-09-23] MEDS: ALPRAZolam 1 MG TAB PO PRN (08:02)
[2019-09-23] MEDS: HYDROcodone/APAP 10-325MG 1 EACH TAB PO PRN ×2 (10:37→16:16)
[2019-09-23 11:19] LABS: Glucose,Whole Blood 195 mg/dL (75-99)
--- NOTE | 2019-09-23 11:35 | P.PN ---
Subjective Progress Note Date: 09/23/19 Patient underwent cervical epidural corticosteroid injection at C7-T1 level on 09/22/2019. He still has significant pain. Patient is receiving Dilaudid 1 mg every 3 hours, and Zanaflex. He feels his left hand may be slightly stronger. No new concerns. Patient is tolerating gabapentin and Mobic well. Objective - Vital Signs Vital signs: Vital Signs Temp 98.9 F 09/23/19 07:05 Pulse 84 09/23/19 08:17 Resp 18 09/23/19 08:17 BP 186/88 09/23/19 07:05 Pulse Ox 97 09/23/19 07:05 Intake & Output 09/22/19 09/23/19 09/23/19 18:59 06:59 18:59 Intake Total 100 590 Balance 100 590 Weight 119.748 kg Intake: IV 100 Oral 590 Other: Voiding Method Toilet Toilet # Voids 1 2 - Exam Patient's mental status, speech and language functions are normal. Cranial nerves are normal. Muscle strength is normal in the right arm and both legs. O n the left side, his deltoid, biceps, triceps, wrist extension, wrist flexion are normal. Finger extension is 4, interossei 3, family living educator is 4+. Overall weakness mainly in C8 root muscles. - Labs CBC & Chem 7: 09/22/19 07:51 09/22/19 07:51 Labs: Abnormal Lab Results - Last 24 Hours (Table) 09/22/19 09/22/19 09/22/19 Range/Units 07:51 12:17 17:06 POC Glucose (mg/dL) 183 H 300 H (75-99) mg/dL Hemoglobin A1c 7.4 H (4.0-6.0) % 09/22/19 09/23/19 09/23/19 Range/Units 19:48 07:11 11:19 POC Glucose (mg/dL) 340 H 194 H 195 H (75-99) mg/dL Hemoglobin A1c (4.0-6.0) % Assessment and Plan Assessment: * Acute cervical radiculopathy, with left C8 nerve root impingement. MRI showed acute cervical disc herniation, left paracentral at C7-T1 level. * Moderate spinal stenosis at C5-6, not symptomatic at this time. Plan: * Patient is status post cervical epidural corticosteroid injection at C7-T1 level. * Patient has developed significant weakness in the left hand. Her left hand appears slightly better although still very weak. Orthopedic spine following. * PT OT for hand and arm strengthening. * Continue Mobic 15 mg daily for cervical spondylosis and radiculopathy. * Continue gabapentin 300 mg 3 times a day for neuropathic pain. Patient is off Lyrica as he states it has not helped much. * Patient will need EMG and nerve conductions of left upper extremity to assess for cervical radiculopathy. * If symptoms do not improve, then may need spine surgery. Orthopedic spine surgery following. * Neurology coverage not available on the weekend.
[2019-09-23 12:24] VITALS: BP 189/98; PULSE 79; RESP 16; TEMP 97.4
--- NOTE | 2019-09-23 12:46 | P.PN ---
Progress Note - Text Progress Note Date: 09/23/19 Orthopedic spine: History of present illness: Patient is a very pleasant 44-year-old male who is seen and examined at the bedside for follow-up evaluation for cervical pain with severe left upper extremity radiculopathy and weakness. He states approximately 6 weeks ago he began to experience some pain in the left upper extremity. He's had some ongoing cervical pain. 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 He states approximately a week later, over the past 3 weeks, he has been experiencing worsening pain with the left upper extremity. He states the pain radiates from the cervical spine, over the left shoulder, down the triceps, down the forearm, into the left middle finger, ring finger, and pinky finger. His pain has been debilitating. Thursday he presented to his primary care provider's office for further evaluation. He was direct admitted to the hospital for further evaluation with orthopedic spine and pain management. He has been started on Solu-Medrol. He previously had a CT of the cervical spine performed in July 2019. He states he is having difficulty working in regular activities of daily living given his symptoms. He has had an MRI of the cervical spine completed. He is been seen and cleared by pain management. He underwent an epidural injection at C7-T1 yesterday. He feels some improvement with manager investigations with his left hand but continues to have other left upper extremity weakness. His left upper extremity pain is currently controlled with oral and IV narcotic medications. He is unsure of the benefit of the injection. He denies any right upper extremity weakness or radiculopathy. He is unsure if you be able to tolerate his symptoms long-term without proceeding for surgical intervention if indicated. He states that stable and his symptoms are fairly well controlled, he would like to be discharged home today, 09/23/2019. Patient does have a medical history of hypertension, dyslipidemia, obesity, mood disorder, and GERD. Patient has been seen and examined today by pain management who states he would be a candidate for epidural injections. 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 strength, interosseous strength, biceps strength, triceps strength, and shoulder strength positive sustained 5/5 strength on the right Motor strength upper extremity is 3/5 including interossei, and thumb extension on the left Motor strength in the upper extremity is 3+/5 including manager investigations on the left Motor strength the upper extremity is 4+/5 including biceps, deltoids and triceps on the left Increased pain with shoulder abduction against resistance Biceps reflex 2+ bilaterally and Brachioradialis reflexes 2+ bilaterally No upper extremity hyperreflexia bilaterally Hoffmans sign negative upper extremities bilaterally Pertinent studies: MRI of the cervical spine taken on 09/21/2019: C7-T1 left paracentral herniated nucleus pulposis resulting in left neural foraminal stenosis; C5-6 and C6 7 degenerative disc disease with slightly decreased signal within the disc; Small posterior disc bulging C4-5, C5-6, and C6-7; mild spondylitic changes C5-6 and C6-7; no significant central canal stenosis; no evidence of compression fracture; cervical spinal cord within normal signal pattern CT of the cervical spine taken on 08/23/2019: C5-6 and C6-7 degenerative disc disease; Degenerative disc disease, facet arthropathy, and uncovertebral joint disease resulting in C5-C6 spinal canal narrowing and severe right mild left neural foraminal stenosis; excessive artifact limiting assessment C5-T1 Assessment: Cervicalgia Acute severe left upper extremity radiculopathy with weakness C7-T1 left paracentral herniated nucleus pulposis resulting in left neural foraminal stenosis Cervical degenerative disc disease C5-6 and C6-7 Small posterior disc bulging C4-5, C5-6, and C6-7 Cervical facet arthropathy History of hypertension, dyslipidemia, obesity, mood disorder, and GERD Plan: 1. After physical examination of the patient, reviewing of cervical MRI imaging, further discussion with Dr. Akshat Ahmadi, and further discussion with the patient, we'll currently plan to continue conservative treatment at this time. He does have evidence of a C7-T1 left paracentral herniated nucleus pulposis resulting in left neural foraminal stenosis. He was able to undergo an injection with pain management at C7-T1 is currently unsure of the benefit of this injection. His pain has been adequately controlled with oral and IV narcotic medications. Patient would like to be discharged home today if his symptoms are stable. We discussed from an orthopedic spine standpoint patient is clear for discharge. We again discussed if he were to fail conservative treatment options, we could plan to proceed forward with surgical intervention as early as next week. If the patient is able to be discharged, we will plan to have the patient follow up in outpatient setting on 09/26/2019, or 09/27/2019, with Camilo Lilly PA-C or Dr. Akshat Ahmadi at [facility]. Patient does state he has multiple family members who've had been previously treated by Dr. Serna. We did discuss if he would prefer treatment with Dr. Serna, that would be an appropriate plan of care as well. At this time he feels he may want to stay in the [place], [place] area and proceed forward with treatment through our practice. 2. Patient will continue be seen examined by medicine for his other medical diagnoses 3. Continue pain control with medication as prescribed by medicine 4. Patient has been seen examined by pain management and underwent and epidural injection; patient states he is currently unsure of the benefit of this injection
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
--- NOTE | 2019-09-23 15:09 | P.DS ---
Providers Date of admission: 09/22/19 08:14 Expected date of discharge: 09/23/19 Attending physician: Bryan Guerrier Consults: 09/20/19 17:13 Consult Physician Routine Consulting Provider: Kasandra Ahmadi Consult Reason/Comments: acute cervical herniated disc Do you want consulting provider notified?: Yes Placement Type Exists?: Yes 09/21/19 15:35 Consult Physician Routine Consulting Provider: Madison Canada Consult Reason/Comments: Cervical radiculopathy, Do you want consulting provider notified?: Yes Primary care physician: [facility] Course: Please see my progress note Procedures: Cervical epidural corticosteroid injection at C7-T1 level Plan - Discharge Summary New Discharge Prescriptions: No Action Atorvastatin [Lipitor] 20 mg PO HS amLODIPine [Norvasc] 5 mg PO DAILY Ubidecarenone [Co Q-10] 100 mg PO DAILY Omeprazole 20 mg PO DAILY Lisinopril 20 mg PO BID Divalproex Sodium [Depakote] 500 mg PO BID Aspirin EC [Ecotrin Low Dose] 81 mg PO DAILY ALPRAZolam [Xanax] 1 mg PO BID PRN PRN Reason: Anxiety Discharge Medication List Aspirin EC [Ecotrin Low Dose] 81 mg PO DAILY 09/20/19 [History] Atorvastatin [Lipitor] 20 mg PO HS 09/20/19 [History] Divalproex Sodium [Depakote] 500 mg PO BID 09/20/19 [History] Lisinopril 20 mg PO BID 09/20/19 [History] Omeprazole 20 mg PO DAILY 09/20/19 [History] Ubidecarenone [Co Q-10] 100 mg PO DAILY 09/20/19 [History] amLODIPine [Norvasc] 5 mg PO DAILY 09/20/19 [History] ALPRAZolam [Xanax] 1 mg PO BID PRN 09/21/19 [History] Follow up Appointment(s)/Referral(s): Camilo Lilly PAC [PHYSICIAN GENERAL NEUROLOGIST] - 09/26/19 9:00 am Bryan Guerrier MD [Primary Care Provider] - 1 Week Activity/Diet/Wound Care/Special Instructions: Hope 10 QID script of #20 written Discharge/Stand Alone Forms: [facility] Diary, [facility] Instructions
== END 2019-09-23 16:31 | disposition home or self-care (01) | DRG 552 ==
LOC: 3NMEDONC 15:53 → OBSVTOIN 09-22 08:14
PROVIDERS: ADMIT Family Medicine; ATTEND Family Medicine
PROC: 3E0R3BZ Introduction of Anesthetic Agent into Spinal Canal, Percutaneous Approach (ICD-10-PCS; 2019-09-22)
PROC: B01BYZZ Fluoroscopy of Spinal Cord using Other Contrast (ICD-10-PCS; 2019-09-22)
PROC: 3E0R33Z Introduction of Anti-inflammatory into Spinal Canal, Percutaneous Approach (ICD-10-PCS; principal; 2019-09-22 10:30)
DX: M50.123 Cervical disc disorder at C6-C7 level with radiculopathy (principal); M48.02 Spinal stenosis, cervical region; E66.9 Obesity, unspecified; E78.5 Hyperlipidemia, unspecified; F17.200 Nicotine dependence, unspecified, uncomplicated; G47.30 Sleep apnea, unspecified; G89.4 Chronic pain syndrome; I10 Essential (primary) hypertension; K21.9 Gastro-esophageal reflux disease without esophagitis; M46.92 Unspecified inflammatory spondylopathy, cervical region; M47.22 Other spondylosis with radiculopathy, cervical region; M50.322 Other cervical disc degeneration at C5-C6 level; F41.9 Anxiety disorder, unspecified; Z79.82 Long term (current) use of aspirin; Z79.899 Other long term (current) drug therapy; Z85.47 Personal history of malignant neoplasm of testis; Z92.21 Personal history of antineoplastic chemotherapy; Z68.37 Body mass index [BMI] 37.0-37.9, adult; Z86.59 Personal history of other mental and behavioral disorders
CPT/HCPCS: 62321; 72141; 80053; 83036; 85025

== ENCOUNTER → 2019-09-26 | Outpatient (CLI) | payer BC ==
[2019-09-26 12:30] LABS: HCT 46.4 % (39.0-53.0); HGB 15.2 gm/dL (13.0-17.5); MCH 30.8 pg (25.0-35.0); MCHC 32.7 g/dL (31.0-37.0); MCV 94.1 fL (80.0-100.0); Mean Platelet Volume 6.4; Platelet Count 236 k/uL (150-450); RBC 4.93 m/uL (4.30-5.90); RDW 12.1 % (11.5-15.5); WBC 11.9 k/uL (3.8-10.6)
[2019-09-26 12:32] LABS: Appearance,Urine Clear (Clear); Bilirubin,Urine Negative (Negative); Blood,Urine Negative (Negative); Color,Urine Yellow; Glucose,Urine (UA) Trace (Negative); Ketones,Urine Trace (Negative); Leukocyte Esterase,Urine Negative (Negative); Nitrite,Urine Negative (Negative); Protein,Urine Trace (Negative); Specific Gravity,Urine 1.029 (1.001-1.035); Urobilinogen,Urine <2.0 mg/dL (<2.0)
[2019-09-26 12:37] LABS: INR 0.9 (<1.2); Prothrombin Time 9.6 sec (9.0-12.0)
[2019-09-26 12:40] LABS: African American GFR (CKD) >90 (>60 ml/min/1.73 sqM); Anion Gap 10 mmol/L; Blood Urea Nitrogen 35 mg/dL (9-20); Calcium 9.6 mg/dL (8.4-10.2); Carbon Dioxide 33 mmol/L (22-30); Chloride 94 mmol/L (98-107); Glucose 154 mg/dL (74-99); Potassium 4.6 mmol/L (3.5-5.1); Sodium 137 mmol/L (137-145)
[2019-09-26 12:56] LABS: Partial Thromboplastin Time 21.4 sec (22.0-30.0)
[2019-09-26 13:53] LABS: Band Neutrophils % 5 %; Eosinophils # (M) 0.12 k/uL (0-0.7); Nucleated Red Blood Cells 0 /100 WBC (0-0)
[2019-09-26 13:55] LABS: Metamyelocytes # (M) 0.24 k/uL (0); Metamyelocytes % 2 %; Monocytes # (M) 0.83 k/uL (0-1.0); Neutrophils % (M) 65 %; Total Cells Counted 200
== END | disposition home or self-care (01) ==
LOC: LABPAT 11:33
PROVIDERS: ATTEND Orthopaedic Surgery Orthopaedic Surgery of the Spine
DX: Z01.818 Encounter for other preprocedural examination (principal); R53.1 Weakness
CPT/HCPCS: 36415; 80048; 81003; 85025; 85610; 85730

== ENCOUNTER 2019-09-28 08:46 | Observation (INO) | payer BC ==
[~2019-09-28 08:46] MED LIST: BACITRACIN 50,000 UNIT, POLYMYXIN B 500,000 UNIT in SODIUM CHLORIDE 0.9% IRRIGATIO 1,00... IRRIGATION ONE; HYDROmorphone 0.5 MG/0.5 ML SYRINGE IVP PRN; LIDOCAINE 1% 20 ML VIAL (10MG/ML) FOR IV START INTRADERMA PRN; ONDANSETRON 4 MG/2 ML VIAL IVP ONE; ceFAZolin 3 GM in SODIUM CHLORIDE 0.9% 100 ML IVPB ONE
[2019-09-28] MEDS: LACTATED RINGERS 1,000 ML IV SCH (09:31)
[2019-09-28] MEDS ORDERED: ePHEDrine SULFATE/0.9% NACL/PF 50 MG/5 ML SYRINGE IV ONE (10:42)
[2019-09-28] MEDS ORDERED: PROPOFOL 10 MG/ML 20 ML VIAL IV ONE (10:42)
[2019-09-28] MEDS ORDERED: MIDAZOLAM 2 MG/2 ML VIAL ONE (10:42)
[2019-09-28] MEDS ORDERED: fentaNYL (PF) 50 MCG/ML 2 ML AMP ONE (10:42)
[2019-09-28] MEDS ORDERED: SUCCINYLCHOLINE CHLORIDE 100 MG/5 ML SYR IV ONE (10:42)
[2019-09-28] MEDS ORDERED: LIDOCAINE 1% INJ 10MG/ML (20 ML MDV) ONE (10:42)
[2019-09-28] MEDS ORDERED: PHENYLEPHRINE-0.9% NACL SYG 1 MG/10 ML SYRINGE ONE (10:42)
[2019-09-28] MEDS ORDERED: WATER FOR INJECTION, STERILE 10 ML VIAL IV ONE (10:42)
[2019-09-28] MEDS ORDERED: DEXMEDETOMIDINE 200 MCG/2 ML VIAL IV ONE (10:42)
[2019-09-28] MEDS ORDERED: KETAMINE 10 MG/ML 20 ML VIAL ONE (10:42)
[2019-09-28] MEDS ORDERED: GELATIN SPONGE,ABSORB (LARGE) 1 EACH SPONGE TOPICAL ONE (10:48)
[2019-09-28] MEDS ORDERED: THROMBIN (BOVINE) 5,000 UNIT VIAL TOPICAL ONE (10:48)
[2019-09-28] MEDS ORDERED: LIDOCAINE 0.5%-EPI 1:200,000 50 ML VIAL SQ ONE (10:48)
[2019-09-28] MEDS ORDERED: LACTATED RINGERS 1,000 ML IV ONE ×2 (11:05→11:58)
--- NOTE | 2019-09-28 13:10 | XR ---
EXAMINATION TYPE: XR cervical spine 1V DATE OF EXAM: 09/28/2019 COMPARISON: NONE HISTORY: Needle placement TECHNIQUE: Single intraoperative cervical spine crosstable lateral view FINDINGS/TECHNIQUE: Needle localization is seen at the C5-C6 intervertebral disc space level. Patient is noted to be intubated. Minimal degenerative changes of the cervical spine.
[2019-09-28] MEDS ORDERED: HYDROcodone/APAP 5-325MG 1 EACH TAB PO PRN (13:20)
[2019-09-28] MEDS ORDERED: HYDROmorphone 1 MG/ML 1 ML SYRINGE IVP PRN (13:20)
[2019-09-28] MEDS ORDERED: BENZOCAINE/MENTHOL LOZENG 1 EACH LOZENGE MUCOUS MEM PRN (13:20)
[2019-09-28] MEDS ORDERED: MAGNESIUM HYDROXIDE 2,400 MG/10 ML CUP PO PRN (13:20)
[2019-09-28] MEDS ORDERED: HYDROmorphone 0.5 MG/0.5 ML SYRINGE IVP PRN ×2 (13:20→19:44)
[2019-09-28] MEDS ORDERED: ALPRAZolam 1 MG TAB PO PRN (13:22)
[2019-09-28] MEDS ORDERED: oxyCODONE-APAP 10-325MG 1 EACH TAB PO PRN (13:22)
--- NOTE | 2019-09-28 13:29 | P.OP ---
Date of Procedure: 09/28/19 Preoperative Diagnosis: Left upper extremity weakness, herniated nucleus pulposis C7-T1, C6 7, C5 6, cervical stenosis C5 6 C6 7 C7-T1, neck pain, left upper extremity radiculopathy, Postoperative Diagnosis: Same Anesthesia: GETA Pathology: none sent Condition: stable Disposition: PACU Description of Procedure: BRIEF OPERATIVE NOTE Preoperative Diagnosis:Left upper extremity weakness, herniated nucleus pulposis C7-T1, C6 7, C5 6, cervical stenosis C5 6 C6 7 C7-T1, neck pain, left upper extremity radiculopathy, Postoperative Diagnosis:Left upper extremity weakness, herniated nucleus pulposis C7-T1, C6 7, C5 6, cervical stenosis C5 6 C6 7 C7-T1, neck pain, left upper extremity radiculopathy, Procedure: Anterior cervical decompression with discectomy and fusion C5 6, C6 7, C7-T1 Placement of interbody graft C5 6, C6 7, C7-T1 Application of anterior cervical plate C5 6 7 and T1 Surgeon: Dr. Ahmadi Boot Trimmer: Camilo Lopez is present throughout the entire the case persistence during positioning, dissection, exposure, visualization, and all crucial elements of the case as well as closure. Anesthesia: General anesthesia per Dr. Siu Estimated blood loss: Approximately 75 mL Complications: None apparent Components implanted: K2M [place] anterior cervical plate system with screws and VIkos interbody allograft bone graft with 1 mL of DBX bone putty Disposition: To recovery room in good stable condition. OPERATIVE INDICATIONS The patient has new acute issues in their neck and upper extremities. He has had some pain in his neck with occasional numbness tingling in his upper extremities but last week candidate acute change where he had severe increase in his pain and a new neurologic change at his left upper extremity. 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 His was affecting the rest of his arm and his overall function. He was admitted to the hospital last week and started aggressive conservative treatment with medications and interventional pain management. He says that some of the interventional pain management helped a little bit of the numbness but did not help his pain overall and is not helped his strength or weakness at all. The patient has been through conservative treatment without any benefit. He was found have a large disc herniation at C7-T1 which appeared to be new and correlated well with her left upper extremity weakness as well as severe central disc herniation C5 6 and C6 7 causing significant stenosis and foraminal encroachment which correlated with his neck and upper extremity symptoms and pain as well. With his acute weakness in the neurologic loss we felt that he had to proceed with intervention sooner rather than later. We discussed various treatment options including surgery, and the patient wishes to proceed with surgery We discussed the risk, patient's alternatives and benefits of surgery including but not limited to, risk of bleeding risk of infection, risk of need for further surgery, risk of decreased, loss of motion, muscle function, malunion nonunion, hardware failure, nerve damage, paralysis, heart attack, and . OPERATIVE SUMMARY After discussing all the risks, patient alternatives and benefits at length, the patient elected to proceed with surgical intervention, signed informed consent, and presented for their procedure. The patient was seen and examined in the preoperative holding area and the surgical site was marked. The patient was given antibiotics and brought to the operating room. The patient was positioned on the operating room table in a supine position being careful to pad any bony prominences and pressure points. The patient was sedated and intubated by anesthesia in standard fashion. Once the airway and C- spine were stabilized the patient's arms were padded and tucked at her side, with her shoulders gently taped. The head was placed in a donut pad with the neck in good neutral alignment and position. We were careful to maintain the patient's cervical spine and good neutral alignment and position throughout. The patient was prepped and draped in a normal standard fashion. An appropriate timeout and keystone protocol performed. We were able to proceed with the surgery. The local wound area was infiltrated with local anesthetic. An incision was made transversely approximately 2-1/2 cm over the appropriate levels at C7. Dissection was taken down subcutaneously to the level of the platysma which was split in line with its fibers. Dissection was taken with a carotid approach, with the trachea and esophagus medial and the carotid sheath laterally. We dissected down to the anterior surface of the vertebral bodies. Intraoperative x-ray was taken which showed a marker at the appropriate level at C5 6. With the appropriate level positively confirmed, we were able to proceed with discectomy at the appropriate levels. I started first at C7-T1 and then worked my way up to C6 7 and then C5 6. All of the operative levels were exposed appropriately. The patient had all their twitches back, and there was no evidence of recurrent laryngeal issue. The wound was copiously irrigated and suctioned dry as had been done periodically throughout the case. At the appropriate level/levels, starting at C7-T1 and then moving to see 67 and then C5 6, I established an annulotomy with an 11 blade scalpel. A discectomy was performed with a combination of pituitary rongeurs, curettes, a high-speed bur, and Kerrison rongeurs. The posterior longitudinal ligament was taken down as were any posterior osteophytes. This gave good central and bilateral foraminal decompression. At C 7 T1 there was note of obvious large extruded disc h erniation on the left side causing severe stenosis and this was removed with decompression and discectomy giving excellent decompression. There is no evidence of any dural tear or leak. The endplates were prepared with a high- speed bur. With the endplates in good parallel position, I was able to size for the appropriate size interbody graft. The wound was irrigated and suctioned dry the graft was prepared and malleted into position. It had good alignment and position with the anterior surface flush with the anterior surface of the vertebral bodies. This was done similarly the appropriate levels, first at C7- T1 and then at C5-C6 7 and then at C5 6. With the grafts intact, I was able to measure and contour and appropriate sized plate. The plate was positioned at the midline over the appropriate levels at C5 6 7 and T1. Screw holes were established with a hand drill and drill guide. Screws were placed in good alignment and position with excellent bony purchase. They were seated under the locking device. The construct was checked and found to be stable. Intraoperative x-ray was taken which showed good alignment and position of the implants at the appropriate levels from C5 to T1. There was no evidence of any dural tear or leak. Good hemostasis was maintained. The wound was copiously irrigated and suctioned dry as had been done periodically throughout the case. The platysma was closed with absorbable suture. The subcutaneous tissue was closed. The subcuticular tissue was closed with absorbable suture. The wound was cleaned and dried and dressed appropriately. A soft cervical collar was placed appropriately. The patient was woken up by anesthesia, extubated, transferred back gently to their hospital bed and brought to the recovery room in good stable condition. The patient will be admitted to the hospital for appropriate postoperative care, medical management and monitoring. We will continue to follow them closely about the postoperative course.
--- NOTE | 2019-09-28 15:14 | XR ---
EXAMINATION TYPE: XR cervical spine 1V DATE OF EXAM: 09/28/2019 COMPARISON: NONE HISTORY: Hardware placement. TECHNIQUE: Single crosstable lateral intraoperative image. FINDINGS/IMPRESSION: There is partial visualization of and anterior cervical fusion device spanning t he C5, C6, and likely C7 vertebral levels. Patient is again noted to be intubated. Lower cervical spi ne is entirely obscured.
[2019-09-28 16:00] VITALS: BMI 37.0
[2019-09-28] MEDS: SODIUM CHLORIDE 0.9% 1,000 ML IV SCH (16:44)
[2019-09-28] MEDS: GABAPENTIN 300 MG CAP PO SCH ×2 (16:45→21:18)
[2019-09-28] MEDS: CYCLOBENZAPRINE 10 MG TAB PO SCH ×2 (16:45→21:18)
[2019-09-28] MEDS: oxyCODONE-APAP 10-325MG 1 EACH TAB PO PRN (17:46)
[2019-09-28] MEDS: ceFAZolin 3 GM in SODIUM CHLORIDE 0.9% 100 ML IVPB SCH (19:23)
[2019-09-28] MEDS ORDERED: ATORVASTATIN 20 MG TAB PO SCH (21:00)
[2019-09-28] MEDS: LISINOPRIL 20 MG TAB PO SCH (21:18)
[2019-09-28] MEDS: DIVALPROEX 500 MG TABLET.DR PO SCH (21:18)
--- NOTE | 2019-09-28 21:43 | CONS ---
CONSULTATION This is a 44-year-old white male status post cervical laminectomy. Follow up with he has a history of hypertensions, severe cervical neuritis status post surgical surgery. He is having severe pain, wants his pain medications increased. Home medicines have been restarted for hypertension, neuropathy. REVIEW OF SYSTEMS: Fourteen-point review of systems negative except for mentioned in HPI. FAMILY HISTORY: Family history of diabetes, hypertension. PAST HISTORY: Appendix, lymph node, testicle, right shoulder, cataract. PHYSICAL EXAM: Weight is 265. 5 feet 10 inches. PSYCH: Fair mood and affect. NEUROLOGIC: Alert orient x3 CARDIOVASCULAR S1, S2. ABDOMEN: Soft. HEMATOLOGY negative Homans. PSYCH: Fair mood and affect. GI soft. ASSESSMENT: 1. Status post cervical neuropathy. 2. Hypertension. 3. Neuropathy. Pain medicines will be given and we will follow up in next 24 to 48 hours. Hypertension medicines will be given. No consultation. MMODL / IJN: [id number] /
[2019-09-28] MEDS: HYDROmorphone 1 MG/ML 1 ML SYRINGE IVP PRN (22:46)
[2019-09-29] MEDS: SODIUM CHLORIDE 0.9% 1,000 ML IV SCH (03:04)
[2019-09-29] MEDS: ceFAZolin 3 GM in SODIUM CHLORIDE 0.9% 100 ML IVPB SCH (03:04)
[2019-09-29] MEDS: HYDROmorphone 1 MG/ML 1 ML SYRINGE IVP PRN ×2 (04:38→07:28)
[2019-09-29] MEDS: LACTATED RINGERS 1,000 ML IV SCH (05:02)
[2019-09-29 07:23] VITALS: BP 132/77; PULSE 76; RESP 16; TEMP 97.6
[2019-09-29] MEDS: GABAPENTIN 300 MG CAP PO SCH (07:27)
[2019-09-29] MEDS: CYCLOBENZAPRINE 10 MG TAB PO SCH (07:27)
[2019-09-29] MEDS: LISINOPRIL 20 MG TAB PO SCH (07:28)
[2019-09-29] MEDS: DIVALPROEX 500 MG TABLET.DR PO SCH (07:28)
[2019-09-29] MEDS ORDERED: PANTOPRAZOLE 40 MG TABLET PO SCH (07:30)
--- NOTE | 2019-09-29 08:42 | P.DS ---
Providers Date of admission: 09/29/19 04:38 Attending physician: Kasandra Ahmadi Primary care physician: [facility] Course: The patient presented on the day of admission as per their operative note. He had a large disc herniation at C7-T1 as well as disc herniations at C5 6 and C6 7 causing him severe neck pain and left upper extremity radiculopathy with weakness. He underwent surgery as per his operative note yesterday and feels he is making very good progress with his surgery. He feels his pain is significantly improved. He still has some tingling on his left hand and fingers but he feels his strength has improved as well. Physical Exam The incision site is clean dry and intact. There is no erythema no drainage. There is no purulence no evidence of infection. His neck is soft and supple without significant swelling Abdomen soft and nontender. Chest has good excursion with deep inspiration and expiration. The patient has active and passive range of motion intact at the upper and lower extremities. There is some improvement in neurologic status at the left upper extremity in terms of his overall motion and strength. Hospital Course Postoperative day #1 status post anterior cervical discectomy decompression and fusion at C56 C6 7 and C7-T1 for his left upper extremity weakness with radiculopathy neck pain and upper extremity pain. The patient is making very good progress thus far and has had good improvement with surgery. The patient has been making good progress postoperatively. They have completed the prophylactic antibiotics without any signs or symptoms of infection. The patient has been able to advance their diet, and is tolerating diet adequately. The pain was initially controlled with IV medications and is now controlled appropriately with oral medications. The patient has been able to increase their mobilization. The patient has progressed appropriately. I think they are in good stable condition for discharge today. They will be sent home with appropriate prescriptions. I answered their questions to the best of my ability in a language that they can understand and they are agreeable with the plan. They will follow up as directed in approximately 2 weeks or sooner if he is having an y problems. Patient Condition at Discharge: Good Plan - Discharge Summary Discharge Rx Participant: No New Discharge Prescriptions: No Action Atorvastatin [Lipitor] 20 mg PO HS amLODIPine [Norvasc] 5 mg PO DAILY Ubidecarenone [Co Q-10] 100 mg PO DAILY Omeprazole 20 mg PO DAILY Lisinopril 20 mg PO BID Divalproex Sodium [Depakote] 500 mg PO BID Aspirin EC [Ecotrin Low Dose] 81 mg PO DAILY ALPRAZolam [Xanax] 1 mg PO BID PRN PRN Reason: Anxiety oxyCODONE-APAP 10-325MG [Percocet 10-325 mg] 1 tab PO Q6H PRN PRN Reason: Pain Cyclobenzaprine [Flexeril] 10 mg PO TID Gabapentin [Neurontin] 300 mg PO TID HYDROcodone/APAP 10-325MG [[place] 10-325] 1 tab PO Q4-6H PRN PRN Reason: Pain Ibuprofen [Motrin] 800 mg PO Q6H PRN PRN Reason: Pain Discharge Medication List Aspirin EC [Ecotrin Low Dose] 81 mg PO DAILY 09/20/19 [History] Atorvastatin [Lipitor] 20 mg PO HS 09/20/19 [History] Divalproex Sodium [Depakote] 500 mg PO BID 09/20/19 [History] Lisinopril 20 mg PO BID 09/20/19 [History] Omeprazole 20 mg PO DAILY 09/20/19 [History] Ubidecarenone [Co Q-10] 100 mg PO DAILY 09/20/19 [History] amLODIPine [Norvasc] 5 mg PO DAILY 09/20/19 [History] ALPRAZolam [Xanax] 1 mg PO BID PRN 09/21/19 [History] Cyclobenzaprine [Flexeril] 10 mg PO TID 09/26/19 [History] Gabapentin [Neurontin] 300 mg PO TID 09/26/19 [History] HYDROcodone/APAP 10-325MG [[place] 10-325] 1 tab PO Q4-6H PRN 09/26/19 [History] Ibuprofen [Motrin] 800 mg PO Q6H PRN 09/26/19 [History] oxyCODONE-APAP 10-325MG [Percocet 10-325 mg] 1 tab PO Q6H PRN 09/26/19 [History] Follow up Appointment(s)/Referral(s): Kasandra Ahmadi DO [Doctor of Osteopathic Medicine] - 2 Weeks Activity/Diet/Wound Care/Special Instructions: Keep site clean. May shower with waterproof Tegaderm intact. Do not soak in a tub. After 72 hours postoperatively, patient May remove dressing and then may shower with area uncovered. Leave Steri-Strips intact and allow them to fray off on their own. May ambulate as tolerated. Avoid heavy or rigorous activity. No repetitive bending twisting or lifting. No overhead work. Discharge Disposition: HOME SELF-CARE
[2019-09-29] MEDS ORDERED: amLODIPine 5 MG TAB PO SCH (09:00)
[2019-09-29] MEDS ORDERED: ASPIRIN 81 MG PO SCH (09:00)
[2019-09-29] MEDS ORDERED: NON FORMULARY DRUG (Ubidecarenone [Co Q-10] 100 MG) PO SCH (09:00)
[2019-09-29] MEDS: oxyCODONE-APAP 10-325MG 1 EACH TAB PO PRN (10:14)
== END 2019-09-29 10:42 | disposition home or self-care (01) ==
LOC: OR 08:46 → 4SSUR 14:47 → OR 09-29 04:37 → 4SSUR 09-29 04:38
PROVIDERS: ADMIT Orthopaedic Surgery Orthopaedic Surgery of the Spine; ATTEND Orthopaedic Surgery Orthopaedic Surgery of the Spine
DX: M48.02 Spinal stenosis, cervical region (principal); M50.123 Cervical disc disorder at C6-C7 level with radiculopathy; M51.14 Intervertebral disc disorders with radiculopathy, thoracic region; M50.223 Other cervical disc displacement at C6-C7 level; I10 Essential (primary) hypertension; Z83.3 Family history of diabetes mellitus; Z82.49 Family history of ischemic heart disease and other diseases of the circulatory system; Z79.899 Other long term (current) drug therapy; Z79.1 Long term (current) use of non-steroidal anti-inflammatories (NSAID); Z88.0 Allergy status to penicillin; G47.33 Obstructive sleep apnea (adult) (pediatric); F17.210 Nicotine dependence, cigarettes, uncomplicated; E78.5 Hyperlipidemia, unspecified; K21.9 Gastro-esophageal reflux disease without esophagitis; Z79.82 Long term (current) use of aspirin; Z79.891 Long term (current) use of opiate analgesic
CPT/HCPCS: 22551; 22552 ×2; 22845; 20931; 86900; 86901; 86850; 72020; G0378; C1713 ×2; C1762; J2250; J0690 ×2; J2405; J2001; J3010; J1170 ×3; J2370; J0330; J2704

== ENCOUNTER → 2020-07-16 | Outpatient (CLI) | payer BC ==
[2020-07-16 12:18] LABS: Basophils # (A) 0.1 k/uL (0-0.2); Basophils % (A) 1 %; Eosinophils # (A) 0.4 k/uL (0-0.7); Eosinophils % (A) 4 %; HCT 40.9 % (39.0-53.0); HGB 12.8 gm/dL (13.0-17.5); Lymphocytes # (A) 2.6 k/uL (1.0-4.8); Lymphocytes % (A) 30 %; MCH 29.3 pg (25.0-35.0); MCHC 31.3 g/dL (31.0-37.0); MCV 93.5 fL (80.0-100.0); Mean Platelet Volume 8.7; Monocytes # (A) 0.6 k/uL (0-1.0); Monocytes % (A) 7 %; Neutrophils # (A) 4.9 k/uL (1.3-7.7); Neutrophils % (A) 57 %; Platelet Count 175 k/uL (150-450); RBC 4.38 m/uL (4.30-5.90); RDW 12.2 % (11.5-15.5); WBC 8.6 k/uL (3.8-10.6)
--- NOTE | 2020-07-16 15:12 | US ---
EXAMINATION TYPE: US scrotum with doppler. TECHNIQUE: Grayscale and color Doppler Duplex imaging performed of the scrotum. DATE OF EXAM: 07/16/2020 COMPARISON: NONE CLINICAL HISTORY: 45-year-old male N44.00 Torsion. 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 Doppler performed to assess for testicular vascularity; good right testicle color flow and waveforms are seen. There is no evidence of testicular torsion. Presence of hydroceles: Yes right side Presence of varicoceles: No IMPRESSION: Very large right-sided hydrocele. No sonographic evidence for testicular torsion on the right. The le ft testicle is surgically absent.
== END | disposition home or self-care (01) ==
LOC: RADUSWWP 11:45
PROVIDERS: ATTEND Family Medicine
DX: N43.3 Hydrocele, unspecified (principal); B89 Unspecified parasitic disease; Z90.79 Acquired absence of other genital organ(s)
CPT/HCPCS: 76870; 85025; 93975; 93976

== ENCOUNTER → 2021-08-21 | Outpatient (CLI) | payer BC ==
--- NOTE | 2021-08-21 09:57 | P.PN ---
Subjective Progress Note Date: 08/21/21 This is 46 years old male with recent history of severe low back pain started after he fell his back and he started having severe low back pain, and is constant and mostly on the left side of the low back area, admitted to the posterior aspect of his left lower extremity, he feels some weakness in his left leg, denies any fever or night sweats he denies , he denies any fever or night sweats, he cannot do physical therapy secondary to an intensity of the pain, right multiple pain medication without any benefit, and is currently on Percocet , Neurontin, Motrin, and Flexeril and he continued to have severe pain, and still the pain interferes with the quality of life and interfere with activity of daily livings Objective - Vital Signs Vital signs: Intake & Output 08/20/21 08/21/21 08/21/21 18:59 06:59 18:59 Weight 117.934 kg - Exam Physical Examinations : -Constitutiona : Cooperative , not in acute distress . -HEENT : nech : supple , no Lymphadenopathy , normal thyroid size . : eyes : no ptosis , no icterus, no photophobia . - neurologic : Cranial nerve II to XII intact , no focal neurological deffecit . -psychatric : alert , oriented X 3 , appropriate affect , intact judgment and insight . -Lymphatic : no Lymphadenopathy . - musculoskeltal : Lumber spine moter stegnth lower extremities ,thigh and legs 5/5 Right side , 3-4/5 Left side deep tendon reflexes : normal Knee Jerk , normal ankle Jerk lumber facet Loading Test = positive Left Range of motion of the lumbar spine Flexion 60 degrees, extension 10 degrees strait leg raising test = positive at 30degree the left side, negative on the right side Fabere test= negative bilaterally Sever tenderness over the Sacroiliac joint on the Left sides Prior to the lumbar spine= 2 mL disc bulging and prominent epidural fat L3 4 disc bulging and facet joint degeneration and prominent epidural fat, L4 5 disc bulging and foraminal stenosis and facet degeneration and prominent epidural fat and severe foraminal stenosis bilaterally, L5-S1 prominent epidural fat and there is disc bulging and facet degeneration Assessment and Plan Assessment: Assessment and plan=1-lumbar spondylosis with lumbar facet arthropathy without myelopathy. 2-lumbar degenerative disc disease . 3-lumbar foraminal stenosis Patient will be good candidate to have left side diagnostic medial branch block at L3, L4 , L5 and possible RFA - PQRS measures = - Patient's medications are documented in the chart. -Tobacco use is positive, and counseling.Given. -Patient's has not received pneumococcal vaccine. -Advanced care planning discussed, patient not eligible. -Opiate contract not signed. -Pain positive and follow-up visit/procedure is scheduled. -Patient's blood pressure measured [155/93 ] , and documented in the record ,and patient will follow up with the primary care. -Patient's weight was measured and body mass index [ 37 ] above the,normal limits and counseling was done. and patient instructed to follow-up with the primary care physician. -Patient was not identified as an unhealthy alcohol user Time with Patient: Greater than 30
[2021-08-21 10:01] VITALS: BP 155/93; PULSE 91; RESP 20; TEMP 98.1
== END ==
LOC: PNWHC3 09:13
PROVIDERS: ATTEND Specialist
DX: M47.816 Spondylosis without myelopathy or radiculopathy, lumbar region (principal); M48.061 Spinal stenosis, lumbar region without neurogenic claudication; M51.36 Other intervertebral disc degeneration, lumbar region; F17.200 Nicotine dependence, unspecified, uncomplicated; Z88.0 Allergy status to penicillin; Z91.030 Bee allergy status
CPT/HCPCS: 99211

== ENCOUNTER → 2021-08-23 | Day surgery (SDC) | payer BC ==
[~2021-08-23] MED LIST changes: -BACITRACIN 50,000 UNIT, POLYMYXIN B 500,000 UNIT in SODIUM CHLORIDE 0.9% IRRIGATIO 1,00... IRRIGATION ONE; -HYDROmorphone 0.5 MG/0.5 ML SYRINGE IVP PRN; +IV FLUID CONTINUATION 700 ML IV ONE; +LACTATED RINGERS 1,000 ML IV ONE; -LIDOCAINE 1% 20 ML VIAL (10MG/ML) FOR IV START INTRADERMA PRN; +MIDAZOLAM 2 MG/2 ML VIAL ONE; -ONDANSETRON 4 MG/2 ML VIAL IVP ONE; +ROPIVACAINE 5MG/ML 20ML VIAL ONE; -ceFAZolin 3 GM in SODIUM CHLORIDE 0.9% 100 ML IVPB ONE; +fentaNYL (PF) 50 MCG/ML 2 ML AMP ONE; +methylPREDNISolone ACETATE 40 MG/ML 1 ML VIAL ONE
[2021-08-23 06:57] VITALS: TEMP 98.7
--- NOTE | 2021-08-23 07:26 | P.PCN ---
Date of Procedure: 08/23/21 Procedure(s) Performed: PREOPERATIVE DIAGNOSIS : 1- Lumbar spondylosis with Facet Arthropathy without myelopathy . 2- Lumber degenerative disc disease. POSTOPERATIVE DIAGNOSIS: 1- Lumbar spondylosis with Facet Arthropathy without myelopathy . 2- Lumber degenerative disc disease PROCEDURE: Diagnostic Left L3 , L4 , and L5 medial branch block under fluoroscopy guidance(fluoroscopy images available in the radiology Department ) ( To target the facet joint between Left L4-5 , and L5-S1 )# 1st Block ANESTHESIA:, Monitered anesthesia care ,as per anesthesia department. EBL: Minimal COMPLICATION: None PROCEDURE INDICATION: Chronic low back pain secondary to Facet arthropathy unresponsive to conservative treatment. PROCEDURE DESCRIPTION: the patient was seen and identified in the preop holding area , risks and benefits and possible complications of the procedure and alternative were discussed with the patient, and the patient agreed to proceed with the procedure and signed the consent and vital signs monitored during the procedure and fluoroscopy was used to maximize the benefit and accuracy of the needle placement, and sedation was given to decrease patient anxiety, patient was taken to the procedure room and placed in prone position vital signs monitored in the back prepped with chlorhexidine X3 then under strict sterile technique using a right oblique fluoroscopy ,the junction of the transverse process and the superior articulating process of the Left L3 , L4 , and L5 vertebra which corresponding to the fluoroscopy image of the eye of the Vipul dog on the block side for the medial branches and subsequently , after local infiltration of skin and subcu tissuies with Ropivacaine 0.5 % , one mL at each level ,then 22-gauge Quincke-type needles , 3 needle was used , each one of them placed at the junction of the base of the transverse process and the superior articular process at the appropriate level, and the needle was advanced until the periosteum contacted, needle placement confirmed with AP oblique and lateral view and after appropriate needle placement confirmed, and after negative aspiration for heme and CSF and there was no paresthesia 1-1/2 mL of Ropivacaine 0.5% mixed with 40 mg Depo-Medrol , then half mL injected at each level after negative aspiration the needle subsequently removed . At the end of the procedure and the needles removed and a bandage applied after the skin was cleaned the cleaning solution patient taken to recovery room in stable condition and monitors in the recovery room for 20-30 minutes and discharged home in stable condition after discharge criteria met and patient will follow up with the pain clinic in 2-4 weeks
--- NOTE | 2021-08-23 07:47 | FL ---
Fluoroscopy History: Lumbar Facet 6sec fluoro time,2 images to PACS.
[2021-08-23 07:53] VITALS: BP 136/72; PULSE 86; RESP 20
== END ==
LOC: ORPAIN 06:34
PROVIDERS: ATTEND Specialist
DX: G89.29 Other chronic pain (principal); M47.816 Spondylosis without myelopathy or radiculopathy, lumbar region
CPT/HCPCS: 64493; 64494; J2250; J1030; J3010; J2795

== ENCOUNTER → 2021-12-30 | Outpatient (CLI) | payer BC ==
--- NOTE | 2021-12-30 08:36 | P.PN ---
Subjective Progress Note Date: 12/30/21 Principal diagnosis: A 46 yr old male with a history of severe and chronic low back pain secondary to lumbar degenerative disc diseases and lumbar spondylosis with facet arthropathy presents today for a L RFA consultation. Pt was receptive to 2nd L L3-L4, L4-L5 facet medial branch block with 60% pain relief. Pain level is currently at an average of 5 /10, dull/ achy in the lower lumbar spine and sharp/ shooting towards the left lower extremity. Pain is provoked by walking and bending twisting or lifting. Pain is alleviated with medications, topicals, injections, physical therapy and a home exercise regimen . Interventional pain procedures completed include Left L3-L4, L4-L5 in Nov, 2021 Patient is currently on Motrin, [place] , Gabapentin Patient denies any side effects of the medication(s), denies excessive drowsiness or sleepiness, denies suicidal ideation and reports that the current pain medication is helping to control the pain and improve activities of daily living. Patient denies any motor or sensory deficits. Patient denies any fever or night sweats, denies any change in the bowel movements or urination. Physical Examination: -Constitutional: Cooperative. Not in acute distress . -HEENT: Neck is supple. No lymphadenopathy. No thyromegaly. Normal thyroid size. Eyes: No ptosis , no icterus, no photophobia. ENT: No auditory deficits. Normal oropharynx. No Thrush. - Respiratory: Chest clear to auscultations bilaterally. No wheezing. No rhonchi. - Cardiovascular: Regular rate and rhythm. S1 / S2 , no S3 , no S4. - Gastrointestinal: Abdomen soft no tenderness. Bowel sounds positive in all four quadrants. No organomegaly. - Genitourinary: Deferred. - Neurologic: Cranial nerve II to XII intact. No focal neurological deficits. - Psychatric: Alert & oriented x 3. Matching mood & appropriate affect. Judgment and insight intact. - Lymphatic: No Lymphadenopathy. - Musculoskeletal: Cervical spine: Muscle bulk/ tone/ strength in the bilateral upper extremities normal. Facet loading test cervical area positive. Lumbar spine: Motor bulk/ tone/ strength lower extremities , thigh and legs : 5/5 Deep tendon reflexes : Normal Knee Jerk. Normal Ankle Jerk . Lumbar Facet Loading Test positive over L L4-L5 Straight Leg Raise: positive at 30 degree right side/ left side Patricia test: positive right side / left side Range of motion: Flexion of the lumbar spine <90 degrees Range of motion: Extension of the lumbar spine <20 degrees Severe tenderness over the Sacroiliac joint: right side / left side Assessment and plan: Chronic low back pain secondary to lumbar degenerative disc disease , lumbar spondylosis with facet arthropathy without myelopathy Recommendation of L L3-L4, L4-L5 RFA Risks, benefits of procedure discussed and pt acknowledged understanding Denies use of aspirin or other anti coagulants All patient questions answered MAPS reviewed and it was appropriate. I have spent 31 minutes on patient care today. Dr Guevara was available by phone for the evaluation of this patient. The time was used to review the medical records including relevant urine studies and Prescription history (MAPs), review of the available imaging, evaluation and examination of the patient, coordination of care with the medical staff and if applicable referring physicians, as well as creation of the medical record PQRS Measure Charge Sheet PQRS Narrative: Smoking Status Heavy tobacco smoker Pain Intensity [Lower Back] 5 Scale Used Numeric (1 - 10) Hx Alcohol Use (MH) No Home Medications: Ambulatory Orders Aspirin EC [Ecotrin Low Dose] 81 mg PO DAILY 09/20/19 Atorvastatin [Lipitor] 20 mg PO HS 09/20/19 Divalproex Sodium [Depakote] 500 mg PO BID 09/20/19 Omeprazole 20 mg PO DAILY 09/20/19 Ubidecarenone [Co Q-10] 100 mg PO DAILY 09/20/19 amLODIPine [Norvasc] 5 mg PO DAILY 09/20/19 lisinopriL 40 mg PO BID 09/20/19 ALPRAZolam [Xanax] 1 mg PO BID PRN 09/21/19 Cyclobenzaprine [Flexeril] 10 mg PO TID 09/26/19 Ibuprofen [Motrin] 800 mg PO Q6H PRN 09/26/19 Potassium (Unknown Dose) 1 tab PO DAILY 08/20/21 Gabapentin 600 mg PO TID 11/27/21 Magnesium 500 mg PO DAILY 11/27/21 HYDROcodone/APAP 10-325MG [[place] 10-325] 1 tab PO TID PRN 12/03/21
[2021-12-30 08:40] VITALS: BP 135/83; PULSE 88; RESP 18; TEMP 98.1
== END ==
LOC: PNWHC3 08:04
PROVIDERS: ATTEND Physician Assistant Medical
DX: G89.29 Other chronic pain (principal); M51.36 Other intervertebral disc degeneration, lumbar region; M47.816 Spondylosis without myelopathy or radiculopathy, lumbar region; F17.200 Nicotine dependence, unspecified, uncomplicated; Z91.030 Bee allergy status; Z88.0 Allergy status to penicillin
CPT/HCPCS: 99211

== ENCOUNTER → 2022-01-17 | Day surgery (SDC) | payer BC ==
[~2022-01-17] MED LIST changes: +IV FLUID CONTINUATION 1,000 ML IV ONE; -IV FLUID CONTINUATION 700 ML IV ONE; +LACTATED RINGERS 1,000 ML IV SCH
[2022-01-17 06:50] VITALS: TEMP 98.7
[2022-01-17 06:58] LABS: Glucose,Whole Blood 115 mg/dL (75-99)
--- NOTE | 2022-01-17 07:28 | P.PCN ---
Date of Procedure: 01/17/22 Procedure(s) Performed: PREOPERATIVE DIAGNOSIS: 1-Lumbar Spondylosis with Facet Arthropathy without myelopathy. 2- Lumber degenerative disc disease. POSTOPERATIVE DIAGNOSIS: 1- Lumbar Spondylosis with Facet Arthropathy without myelopathy. 2- Lumber degenerative disc disease. PROCEDURES : Radiofrequency thermocoagulation,left L3 , L4 , and L5 medial branch, with fluoroscopic guidance (fluoroscopy images available in the radiology department) ( to denervate the facet joint at Left L3-4 , L4-5 levels ). ANESTHESIA: Monitored anesthesia care as per anesthesia department . EBL: Minimal PROCEDURE INDICATION: The patient with low back pain secondary to lumbar facet arthropathy who had more than 50% relief of her pain with previous diagnostic lumbar medial branch block with bupivacaine. PROCEDURE DESCRIPTION / TECHNIQUE: The patient was seen and identified in the preoperative area. Risks, benefits, complications, including but not limited to risk of infection ,bleeding , allergic reactions to the medications and no complete pain releife , and alternatives were discussed with the patient, the patient agreed to proceed with the procedure and signed the consent. IV was started. Vital signs remained stable throughout the procedure. Patient was taken to the OR and time out was completed. The patient was placed in the prone position on the procedure table. The lumber area was prepped and draped in the usual sterile fashion. . Vital signs were closely monitored during the procedure .IV sedation was used during the procedure to decrease patients anxiety. Using AP and then oblique fluoroscopy, the ``eye of the Vipul dog corresponding to the connection between the superior and transverse articular processes of left L3, L4, and L5 were identified, marked, and localized with 1% lidocaine. Subsequently, a [id number] radiofrequency cannula with a 10-mm active tip was advanced guided by fluoroscopy to each of the``eyes of the Vipul dog at left L3, L4, and L5. Each site then underwent sensory testing at 50 Hz and 0 to 1 volt and motor testing at 2.5 Hz and 0 to 3 volt with local stimulation, but no radicular symptoms down the legs. Thereafter each sites underwent radiofrequency thermocoagulation at 80 degrees celsius for 90 seconds after injecting 0.5 ml of PF Ropivacaine 1ml, then after the thermocoagulation done , 1 ml of the block solution containing Depo-Medrol 20 mg and 3 ml of Ropivacaine 0.5% was injected at the left L3 , L4 , and L5 , levels after negative aspiration of CSF and blood and with no paresthesias. Cannulas were retracted while injecting lidocaine 1% until the needle is out. . At the end of the procedure, the skin was cleansed and bandages were applied. COMPLICATIONS: No acute complications. DISPOSITION / PLANS: The patient was placed in a supine position and transferred to the recovery area in a stable condition for observation and was discharged from the recovery room after meeting discharge criteria. Home discharge instructions given to the patient by the staff. The patient was reexamined prior to discharge. The patient will schedule a follow up in the clinic in 2-4 weeks.
--- NOTE | 2022-01-17 07:41 | FL ---
Fluoroscopy History: Lumbar Rad Freq 9sec fluoro time Dr Nguyen
[2022-01-17 07:57] VITALS: BP 142/79; PULSE 78; RESP 18
== END ==
LOC: ORPAIN 05:59
PROVIDERS: ATTEND Specialist
DX: M51.26 Other intervertebral disc displacement, lumbar region (principal); M54.50 Low back pain, unspecified; M54.16 Radiculopathy, lumbar region; M47.816 Spondylosis without myelopathy or radiculopathy, lumbar region; M51.36 Other intervertebral disc degeneration, lumbar region; Z91.030 Bee allergy status; I10 Essential (primary) hypertension; E78.5 Hyperlipidemia, unspecified; G47.33 Obstructive sleep apnea (adult) (pediatric); F41.9 Anxiety disorder, unspecified; Z79.891 Long term (current) use of opiate analgesic; Z79.899 Other long term (current) drug therapy; Z98.890 Other specified postprocedural states; Z90.49 Acquired absence of other specified parts of digestive tract; Z88.0 Allergy status to penicillin
CPT/HCPCS: 64635; 64636; J2250; J1030; J3010; J2795

== ENCOUNTER → 2022-02-06 | Outpatient (CLI) | payer BC ==
--- NOTE | 2022-02-06 08:42 | P.PN ---
Subjective Progress Note Date: 02/06/22 Principal diagnosis: A 47 yr old male with a history of severe and chronic low back pain secondary to lumbar degenerative disc diseases and lumbar spondylosis with facet arthropathy presents today for evaluation status post left RFA of the L3-L4, L4- L5. Patient states he sustained greater than 80% pain relief for 2 weeks status post procedure. Pain level is currently at 2 out of 10 in intensity, only burning and stinging in character with deep palpation, bending, lifting. Pain is alleviated with medications, topicals, injections, ice, heat in the past which did not improve pain, repositioning, physical therapy of which he is currently in for the last 3 weeks and has had several stents in 2020, home stretching regimen and rest. Interventional pain procedures completed include left RFA of the L3-L4, L4-L5 Patient is currently on [place], ibuprofen. Patient denies any side effects of the medication(s), denies excessive drowsiness or sleepiness, denies suicidal ideation and reports that the current pain medication is helping to control the pain and improve activities of daily living. Patient denies any motor or sensory deficits. Patient denies any fever or night sweats, denies any change in the bowel movements or urination. Physical Examination: -Constitutional: Cooperative. Not in acute distress . -HEENT: Neck is supple. No lymphadenopathy. No thyromegaly. Normal thyroid size. Eyes: No ptosis , no icterus, no photophobia. ENT: No auditory deficits. Normal oropharynx. No Thrush. - Respiratory: Chest clear to auscultations bilaterally. No wheezing. No rhonchi. - Cardiovascular: Regular rate and rhythm. S1 / S2 , no S3 , no S4. - Gastrointestinal: Abdomen soft no tenderness. Bowel sounds positive in all four quadrants. No organomegaly. - Genitourinary: Deferred. - Neurologic: Cranial nerve II to XII intact. No focal neurological deficits. - Psychatric: Alert & oriented x 3. Matching mood & appropriate affect. Judgment and insight intact. - Lymphatic: No Lymphadenopathy. - Musculoskeletal: Cervical spine: Muscle bulk/ tone/ strength in the bilateral upper extremities normal. Facet loading test cervical area positive. Lumbar spine: Motor bulk/ tone/ strength lower extremities , thigh and legs : 5/5 Deep tendon reflexes : Normal Knee Jerk. Normal Ankle Jerk . Vertebral body tenderness to palpation over Lumbar Facet Loading Test positive bilateral L3-L4, L4-L5 with deep palpation. Straight Leg Raise: positive at 30 degrees right side/ left side Gaenslen's Test positive Sacral spine : Severe tenderness over the Sacroiliac joint: right side / left side Range of motion: Flexion of the lumbar spine <60 degrees Range of motion: Extension of the lumbar spine <20 degrees Gaenslen's Test positive Patricia test: positive right side / left side Assessment and plan: Chronic low back pain secondary to lumbar degenerative disc disease , lumbar spondylosis with facet arthropathy without myelopathy Patient may return to our office for additional procedures on an as- needed basis. All patient questions answered MAPS reviewed and it was appropriate. I have spent 31 minutes on patient care today. Dr Guevara was available by phone for the evaluation of this patient. The time was used to review the medical records including relevant urine studies and Prescription history (MAPs), review of the available imaging, evaluation and examination of the patient, coordination of care with the medical staff and if applicable referring physicians, as well as creation of the medical record Objective - Vital Signs Vital signs: Intake & Output 02/05/22 02/06/22 02/06/22 18:59 06:59 18:59 Weight 117.934 kg PQRS Measure Charge Sheet PQRS Narrative: Smoking Status Heavy tobacco smoker Pain Intensity [Lower Back] 8 Hx Alcohol Use (MH) No Home Medications: Ambulatory Orders Aspirin EC [Ecotrin Low Dose] 81 mg PO DAILY 09/20/19 Atorvastatin [Lipitor] 20 mg PO HS 09/20/19 Divalproex Sodium [Depakote] 500 mg PO BID 09/20/19 Omeprazole 20 mg PO DAILY 09/20/19 Ubidecarenone [Co Q-10] 100 mg PO DAILY 09/20/19 amLODIPine [Norvasc] 5 mg PO DAILY 09/20/19 lisinopriL 40 mg PO BID 09/20/19 ALPRAZolam [Xanax] 1 mg PO BID PRN 09/21/19 Cyclobenzaprine [Flexeril] 10 mg PO TID 09/26/19 Ibuprofen [Motrin] 800 mg PO Q6H PRN 09/26/19 Potassium (Unknown Dose) 1 tab PO DAILY 08/20/21 Gabapentin 600 mg PO TID 11/27/21 Magnesium 500 mg PO DAILY 12/29/21 HYDROcodone/APAP 10-325MG [[place] 10-325] 1 tab PO TID PRN 12/03/21
[2022-02-06 11:52] VITALS: BP 148/91; PULSE 85; RESP 18; TEMP 98.4
== END ==
LOC: PNWHC3 07:52
PROVIDERS: ATTEND Physician Assistant Medical
DX: G89.29 Other chronic pain (principal); F17.200 Nicotine dependence, unspecified, uncomplicated; Z88.0 Allergy status to penicillin; Z91.030 Bee allergy status
CPT/HCPCS: 99211

== ENCOUNTER → 2022-07-01 | Outpatient (CLI) | payer BC ==
--- NOTE | 2022-07-01 15:37 | MR ---
EXAMINATION TYPE: MR lumbar spine wo con DATE OF EXAM: 07/01/2022 COMPARISON: None HISTORY: LOW BACK PAIN, RADICULOPATHY, LUMBAR TECHNIQUE: Multiplanar, multisequence images of the lumbar spine were acquired without IV contrast. L1-L2: Normal disc appearance without desiccation. No herniation, protrusion or disc bulging. No ca nal stenosis is present. Foramina are patent bilaterally. L2-L3: Normal disc appearance without desiccation. No herniation, protrusion or disc bulging. No ca nal stenosis is present. Foramina are patent bilaterally. L3-L4: Normal disc appearance without desiccation. No herniation, protrusion or disc bulging. No ca nal stenosis is present. Foramina are patent bilaterally. L4-L5: Disc bulge with facet joint arthropathy result in moderate to severe bilateral neural foramina l stenosis. The spinal canal is mildly narrowed. L5-S1: Disc bulge with facet joint arthropathy result in moderate to severe bilateral neural foramina l stenosis. The spinal canal is mildly narrowed. Lumbar segments are intact. No paraspinal masses are identified. Conus medullaris has a normal appe arance. IMPRESSION: Disc bulge L4-L5 and L5-S1 with facet joint arthropathy result in moderate to severe bilateral neural foraminal stenosis.
== END | disposition home or self-care (01) ==
LOC: RADMRIMAIN 08:14
PROVIDERS: ATTEND Orthopaedic Surgery Orthopaedic Surgery of the Spine
DX: M47.26 Other spondylosis with radiculopathy, lumbar region (principal)
CPT/HCPCS: 72148

== ENCOUNTER → 2023-05-25 | Outpatient (CLI) | payer BC ==
--- NOTE | 2023-05-25 14:56 | US ---
EXAMINATION TYPE: US arterial LE single level DATE OF EXAM: 05/25/2023 2:38 PM CLINICAL INDICATION: Male, 48 years old with history of I70.213 CLAUDICATION; Patient states having n erve pain. History of: Smoker: Previous Hypertension: Takes medication Diabetic: No Hyperlipidemia: Yes TIA/CVA: No Previous Vascular Surgery: No CAD: No TX: No Vascular Ulcers: No Claudication: No Gangrene: No Doppler Waveforms: Right: Multiphasic Left: Multiphasic Right Brachial Pressure: 104 Left Brachial Pressure: 104 Ankle-Brachial Indices: Right: 1.3 Left: 1.1 Toe Brachial Indices: Right: 0.8 Left: 0.7 IMPRESSION: Bilateral ankle brachial indices are within normal limits suggesting no significant victor m pheral arterial disease.
== END | disposition home or self-care (01) ==
LOC: RADUSWWP 13:41
PROVIDERS: ATTEND Family Medicine
DX: I70.213 Atherosclerosis of native arteries of extremities with intermittent claudication, bilateral legs (principal)
CPT/HCPCS: 93922

== ENCOUNTER 2023-06-04 06:43 | Day surgery (SDC) | payer BC ==
[2023-06-04] MEDS ORDERED: LACTATED RINGERS 1,000 ML IV ONE (06:55)
[2023-06-04 07:03] VITALS: RESP 16; TEMP 98
[2023-06-04] MEDS ORDERED: PROPOFOL 10 MG/ML 20 ML VIAL IV ONE (07:29)
--- NOTE | 2023-06-04 07:34 | P.GSHP ---
History of Present Illness H&P Date: 06/04/23 Chief Complaint: Screening colonoscopy, constipation This a 48-year-old male presents today for colonoscopy. He's never had a colonoscopy before. 4. He's had some complaints of constipation. Past Medical History Past Medical History: Cancer, Diabetes Mellitus, GERD/Reflux, Hyperlipidemia, Hypertension, Osteoarthritis (OA), Sleep Apnea/CPAP/BIPAP Additional Past Medical History / Comment(s): Hx Covid 10/20. LOWER BACK PAIN RADIATING TO LEFT HIP/LEG. Current left calf pain. Neck pain for several months. Hx testicular cancer in 1995 with chemotherapy and surgery. CPAP use. "Lost weight, no problems with sugar since". elevated "kidneynumbers" History of Any Multi-Drug Resistant Organisms: None Reported Past Surgical History: Appendectomy, Orthopedic Surgery Additional Past Surgical History / Comment(s): CERVICAL SURGERY 09/28/19.Right leg fracture with repair, bilateral lymph node disection, left testicle removed, Spermatocele surgery, left eye surgery X2/ retinal reattachment lft elbow fx surgery, plate to rt ankle, Past Anesthesia/Blood Transfusion Reactions: Previous Problems w/ Anesthesia Additional Past Anesthesia/Blood Transfusion Reaction / Comment(s): Has woken up during surgery. Smoking Status: Former smoker - Past Family History Father Family Medical History: Myocardial Infarction (DC) Medications and Allergies Home Medications Medication Instructions Recorded Confirmed Type Aspirin EC [Ecotrin Low Dose] 81 mg PO DAILY 09/20/19 06/04/23 History Atorvastatin [Lipitor] 20 mg PO HS 09/20/19 06/04/23 History Divalproex Sodium [Depakote] 500 mg PO BID 09/20/19 06/04/23 History Omeprazole 20 mg PO DAILY 09/20/19 06/04/23 History Ubidecarenone [Co Q-10] 100 mg PO DAILY 09/20/19 06/04/23 History amLODIPine [Norvasc] 5 mg PO DAILY 09/20/19 06/04/23 History lisinopriL 40 mg PO BID 09/20/19 06/04/23 History ALPRAZolam [Xanax] 1 mg PO BID PRN 09/21/19 06/04/23 History Cyclobenzaprine [Flexeril] 10 mg PO TID 09/26/19 06/04/23 History Ibuprofen [Motrin] 800 mg PO Q6H PRN 09/26/19 06/04/23 History Potassium (Unknown Dose) 1 tab PO DAILY 08/20/21 06/04/23 History Gabapentin 600 mg PO TID 11/27/21 06/04/23 History Magnesium 500 mg PO DAILY 11/27/21 06/04/23 History HYDROcodone/APAP 10-325MG [[place] 1 tab PO TID PRN 12/03/21 06/04/23 History 10-325] Allergies Allergy/AdvReac Type Severity Reaction Status Date / Time bee venom protein (honey bee) Allergy Anaphylaxis Verified 06/04/23 06:55 Penicillins Allergy Unknown Verified 06/04/23 06:55 Childhood Surgical - Exam Vital Signs Temp Pulse Resp BP Pulse Ox 98 F 90 16 141/69 96 06/04/23 07:01 06/04/23 07:01 06/04/23 07:01 06/04/23 07:01 06/04/23 07:01 - General well developed, well nourished, no distress - Eyes PERRL - ENT normal pinna - Neck no masses - Respiratory normal expansion - Cardiovascular Rhythm: regular - Abdomen Abdomen: soft, non tender Assessment and Plan Assessment: We'll perform screening colonoscopy.
[2023-06-04] MEDS ORDERED: LIDOCAINE 1% (10MG/ML) FOR IV START INTRADERMA PRN (07:48)
[2023-06-04] MEDS ORDERED: LACTATED RINGERS 1,000 ML IV SCH (07:48)
--- NOTE | 2023-06-04 07:52 | P.OP ---
Date of Procedure: 06/04/23 Preoperative Diagnosis: Screening colonoscopy Constipation Postoperative Diagnosis: External hemorrhoids Procedure(s) Performed: Colonoscopy Anesthesia: MAC Surgeon: Matti Baig Pathology: none sent Condition: stable Disposition: PACU Description of Procedure: The patient's placed on the endoscopy table in the lateral position. He received IV sedation. Digital rectal exam was performed. This revealed external hemorrhoids. The hemorrhoids were quite significant. Flexible colonoscope was then placed patient anus and passed throughout the entire colon. The ileocecal valve was visualized. The cecum, ascending and transverse colon appeared normal. The descending and; appeared normal. Scope was withdrawn from patient. And internal and external hemorrhoids were noted. Scope was withdrawn for patient.
[2023-06-04 08:08] VITALS: BP 121/68; PULSE 87
== END 2023-06-04 08:26 | disposition home or self-care (01) ==
LOC: ORWHC2ENDO 06:43
PROVIDERS: ATTEND Surgery
DX: K59.00 Constipation, unspecified (principal); K64.4 Residual hemorrhoidal skin tags; E11.9 Type 2 diabetes mellitus without complications; K21.9 Gastro-esophageal reflux disease without esophagitis; E78.5 Hyperlipidemia, unspecified; I10 Essential (primary) hypertension; M19.90 Unspecified osteoarthritis, unspecified site; G47.30 Sleep apnea, unspecified; Z86.16 Personal history of COVID-19; Z90.49 Acquired absence of other specified parts of digestive tract; Z98.890 Other specified postprocedural states; Z90.79 Acquired absence of other genital organ(s); Z87.891 Personal history of nicotine dependence; Z82.49 Family history of ischemic heart disease and other diseases of the circulatory system; Z79.899 Other long term (current) drug therapy; Z91.030 Bee allergy status; Z88.0 Allergy status to penicillin
CPT/HCPCS: 45378; J2704

== ENCOUNTER 2025-04-10 20:40 | Inpatient (IN) | payer BC ==
[2025-04-10] MEDS ORDERED: VANCOMYCIN IV PER PHARMACY 1 EACH MISC MISCELLANE PRN (21:52)
[2025-04-10 22:06] LABS: Basophils # (A) 0.05 10*3/uL (0.00-0.10); Basophils % (A) 0.4 %; Eosinophils # (A) 0.07 10*3/uL (0.04-0.35); Eosinophils % (A) 0.5 %; HCT 32.3 % (39.6-50.0); HGB 10.1 g/dL (13.0-17.0); Lymphocytes # (A) 2.32 10*3/uL (0.90-5.00); Lymphocytes % (A) 16.4 %; MCHC 31.3 g/dL (32.0-37.0); MCV 83.2 fL (80.0-97.0); Mean Platelet Volume 10.2 fL (9.5-12.2); Monocytes # (A) 1.66 10*3/uL (0.20-1.00); Monocytes % (A) 11.8 %; Neutrophils # (A) 9.73 10*3/uL (1.80-7.70); Neutrophils % (A) 68.9 %; Platelet Count 311 10*3/uL (140-440); RBC 3.88 10*6/uL (4.40-5.60); RDW 15.9 % (11.5-14.5); WBC 14.11 10*3/uL (4.50-10.00)
--- NOTE | 2025-04-10 22:10 | XR ---
EXAMINATION TYPE: XR ankle complete RT DATE OF EXAM: 04/10/2025 9:53 PM COMPARISON: None CLINICAL INDICATION: Male, 50 years old with history of osteo; PHH, pain TECHNIQUE: XR ankle complete RT; frontal, lateral and oblique projections. FINDINGS: Evidence of prior internal fixation status post removal of the distal fibula. There is soft tissue sw elling present. No evidence of fracture. No osseous erosion or subcutaneous gas identified. IMPRESSION: Postsurgical changes to the distal fibula with hardware removal. Soft tissue swelling present suggest mali of cellulitis. No osseous erosion at this time. No subcutaneous gas. [facility], , 04/10/2025 10:07 PM
--- NOTE | 2025-04-10 22:15 | ED ---
General Adult HPI - General Source: patient Mode of arrival: ambulatory Limitations: no limitations <Morena Zambrano - Last Filed: 04/11/25 00:10> <Stas Mathis - Last Filed: 04/18/25 19:40> - General Chief complaint: Recheck/Abnormal Lab/Rx Stated complaint: R Foot pain-Sent by Dr Ge Seen by Provider: 04/10/25 20:46 - History of Present Illness Initial comments: Patient is a 50-year-old male with insulin-dependent diabetes mellitus, hypertension, hyperlipidemia sent to the emergency department by PCP for osteomyelitis. Patient states that since August he has had a nonhealing wound on his right lateral malleolus. He had been going to wound care where they noticed that a screw from a previous ankle surgery was prominent. Patient had hardware removed about 3 weeks ago at [facility]. At the time of surgery wound cultures were taken which resulted positive and he was started on levoflo xacin 750 mg daily, which he has been on for the last 3 weeks. Since that time with the pain in lateral malleolus is getting worse to the point where he is having a difficult time ambulating. Last Thursday he had a CT ankle and he had a MRI ankle performed. He saw his PCP earlier today via telemedicine and was told to come to the ER due to the elevated ESR as well as his MRI from showing osteomyelitis. Patient reports nausea and vomiting without hematemesis, decreased appetite, decreased energy, edema of the lower extremities. He denies fever/chills. (Morena Zambrano) - Related Data Home Medications Medication Instructions Recorded Confirmed Divalproex Sodium [Depakote] 500 mg PO BID 09/20/19 04/11/25 amLODIPine [Norvasc] 5 mg PO DAILY 09/20/19 04/11/25 ALPRAZolam [Xanax] 1 mg PO BID 09/21/19 04/11/25 Cyclobenzaprine [Flexeril] 10 mg PO HS 09/26/19 04/11/25 Ibuprofen [Motrin] 800 mg PO TID 09/26/19 04/11/25 Magnesium 500 mg PO DAILY 11/27/21 04/11/25 HYDROcodone/APAP 10-325MG [[place] 2 tab PO TID 12/03/21 04/11/25 10-325] Cyclobenzaprine [Flexeril] 10 mg PO DAILY PRN 04/11/25 04/11/25 Docusate [Colace] 100 mg PO HS 04/11/25 04/11/25 Ferrous Sulfate [Feosol] 325 mg PO DAILY 04/11/25 04/11/25 Furosemide [Lasix] 40 mg PO DAILY 04/11/25 04/11/25 Insulin Lispro [humaLOG Kwikpen] See Protocol SQ AC-TID 04/11/25 04/11/25 Levofloxacin [Levaquin] 750 mg PO DAILY 04/11/25 04/11/25 Omeprazole [PriLOSEC] 40 mg PO DAILY 04/11/25 04/11/25 Potassium Chloride [Klor-Con M20] 10 meq PO DAILY 04/11/25 04/11/25 Zinc Gluconate [Zinc] 50 mg PO DAILY 04/11/25 04/11/25 lisinopriL 40 mg PO BID 04/11/25 04/11/25 metFORMIN HCL [Glucophage] 500 mg PO BID 04/11/25 04/11/25 oxyCODONE HCL [oxyCODONE HCL (IR)] 10 mg PO Q4H PRN 04/11/25 04/11/25 predniSONE [Deltasone] 5 - 10 mg PO DAILY 04/11/25 04/11/25 Allergies Allergy/AdvReac Type Severity Reaction Status Date / Time bee venom protein (honey bee) Allergy Anaphylaxis Verified 04/11/25 08:12 Penicillins Allergy Unknown Verified 04/11/25 08:12 Childhood Review of Systems ROS Other: All systems not noted in ROS Statement are negative. Constitutional: Denies: fever, chills Respiratory: Denies: dyspnea Cardiovascular: Reports: edema. Denies: chest pain Endocrine: Reports: fatigue Gastrointestinal: Reports: nausea, vomiting. Denies: abdominal pain, diarrhea, constipation, hematemesis, melena, hematochezia Genitourinary: Denies: dysuria, hematuria Neurological: Denies: headache <Morena Zambrano - Last Filed: 04/11/25 00:10> ROS Other: All systems not noted in ROS Statement are negative. <Stas Mathis - Last Filed: 04/18/25 19:40> ROS Statement: Those systems with pertinent positive or pertinent negative responses have been documented in the HPI. Past Medical History Past Medical History: Cancer, Diabetes Mellitus, GERD/Reflux, Hyperlipidemia, Hypertension, Osteoarthritis (OA), Sleep Apnea/CPAP/BIPAP Additional Past Medical History / Comment(s): Hx Covid 10/20. LOWER BACK PAIN RADIATING TO LEFT HIP/LEG. Current left calf pain. Neck pain for several months. Hx testicular cancer in 1995 with chemotherapy and surgery. CPAP use. "Lost weight, no problems with sugar since". History of Any Multi-Drug Resistant Organisms: None Reported Past Surgical History: Orthopedic Surgery Additional Past Surgical History / Comment(s): CERVICAL SURGERY 09/28/19.Right leg fracture with repair, bilateral lymph node disection, left testicle removed, Spermatocele surgery, left eye surgery X2/ retinal reattachment surgery. Past Anesthesia/Blood Transfusion Reactions: Previous Problems w/ Anesthesia Additional Past Anesthesia/Blood Transfusion Reaction / Comment(s): Has woken up during surgery. Past Psychological History: Anxiety, Depression Smoking Status: Current every day smoker Past Alcohol Use History: None Reported Past Drug Use History: Marijuana - Past Family History Father Family Medical History: Myocardial Infarction ([place]) <Morena Zambrano - Last Filed: 04/11/25 00:10> General Exam Limitations: no limitations General appearance: alert, in no apparent distress Head exam: Present: atraumatic Eye exam: Present: normal appearance ENT exam: Present: mucous membranes moist, normal external ear exam Respiratory exam: Present: normal lung sounds bilaterally. Absent: respiratory distress, wheezes, rales, rhonchi, accessory muscle use Cardiovascular Exam: Present: regular rate, normal rhythm, normal heart sounds. Absent: systolic murmur, diastolic murmur GI/Abdominal exam: Present: soft, normal bowel sounds. Absent: distended, tenderness, guarding Right Ankle exam: Present: tenderness, swelling. Absent: full ROM (Purulent right l ateral malleolus), abrasion, laceration, ecchymosis, deformity, crepitus, dislocation Neurovascular tendon exam: Present: no vascular compromise Neurological exam: Present: alert, oriented X3 Psychiatric exam: Present: normal affect, normal mood Skin exam: Present: warm, dry <Morena Zambrano - Last Filed: 04/11/25 00:10> Course Vital Signs 04/10/25 04/10/25 04/11/25 20:40 23:22 01:02 Temperature 97.7 F 97.9 F 98.2 F Pulse Rate 108 H 98 97 Respiratory 20 18 18 Rate Blood Pressure 94/58 105/69 114/71 O2 Sat by Pulse 98 97 98 Oximetry Medical Decision Making - Lab Data Result diagrams: 04/10/25 22:03 04/10/25 22:03 <Morena Zamrbano - Last Filed: 04/11/25 00:10> - Lab Data Result diagrams: 04/11/25 06:34 04/14/25 06:47 <Stas Mathis - Last Filed: 04/18/25 19:40> - Medical Decision Making Was pt. sent in by a medical professional or institution (DANIELA Eubanks, RESEARCH AIDE, urgent care, hospital, or long-term...) When possible be specific @ -No Did you speak to anyone other than the patient for history (EMS, parent, family, police, friend...)? What history was obtained from this source @ -No Did you review nursing and triage notes (agree or disagree)? Why? @ -I reviewed and agree with nursing and triage notes Were old charts reviewed (outside hosp., previous admission, EMS record, old EKG, old radiological studies, urgent care reports/EKG's, long-term records)? Report findings @ -No old charts were reviewed Differential Diagnosis? @ -Cellulitis, gangrene, osteomyelitis, soft tissue injury, septic arthritis. This is not meant to be an all-inclusive list. EKG interpreted by me (3pts min.). @ -As above X-rays interpreted by me (1pt min.). @ -No obvious osseous deformities CT interpreted by me (1pt min.). @ -None done U/S interpreted by me (1pt. min.). @ -None done What testing was considered but not performed or refused? (CT, X-rays, U/S, labs)? Why? @ -None What meds were considered but not given or refused? Why? @ -None Did you discuss the management of the patient with other professionals (professionals i.e. , DANIELA, RESEARCH AIDE, lab, RT, psych nurse, 7th grade social studies teacher, plane tableman, teacher, ground intelligence officer, case briefer)? Give summary @ -No Was smoking cessation discussed for >3mins.? @ -No Was critical care preformed (if so, how long)? @ -No Were there social determinants of health that impacted care today? How? (Homelessness, low income, unemployed, alcoholism, drug addiction, transportation, low edu. Level, literacy, decrease access to med. care, fci, rehab)? @ -No Was there de-escalation of care discussed even if they declined (Discuss DNR or withdrawal of care, Hospice)? DNR status @ -No What co-morbidities impacted this encounter? (DM, HTN, Smoking, COPD, CAD, C ancer, CVA, ARF, Chemo, Hep., AIDS, mental health diagnosis, sleep apnea, morbid obesity)? @ -None Was patient admitted / discharged? Hospital course, mention meds given and route, prescriptions, significant lab abnormalities, going to OR and other pertinent info. @ -Patient is a 50-year-old male with insulin-dependent diabetes mellitus, hypertension, hyperlipidemia sent to the ER by his PCP due to elevated ESR and results of CT/MRI performed last week. He has had a nonhealing wound since August, surgery to remove hardware 3 weeks ago, was placed on levofloxacin daily since surgery due to positive wound culture in the OR. A CBC, CMP, ESR, CRP, blood culture, PT/PTT/INR, and ankle x-ray obtained. Ankle x-ray showed postsurgical changes to the distal fibula with hardware removal, soft tissue swelling present suggestive of cellulitis, no osseous erosion at this time, no subcutaneous gas. Left remarkable for leukocytosis, elevated CRP, creatinine 1.80. Patient was resumed on Levaquin and started on vancomycin. Case was discussed with Dr. Guerrier and he accepted the patient. Undiagnosed new problem with uncertain prognosis? @ -No Drug Therapy requiring intensive monitoring for toxicity (Heparin, Nitro, Insulin, Cardizem)? @ -No Were any procedures done? @ -No Diagnosis/symptom? @ -Osteomyelitis Acute, or Chronic, or Acute on Chronic? @ -Acute Uncomplicated (without systemic symptoms) or Complicated (systemic symptoms)? @ -Complicated Side effects of treatment? @ -No Exacerbation, Progression, or Severe Exacerbation? @ -No Poses a threat to life or bodily function? How? (Chest pain, [place], [place], pneumonia, PE, COPD, DKA, ARF, appy, cholecystitis, CVA, Diverticulitis, Homicidal, Suicidal, threat to staff... and all critical care pts) @ -No (Morena Zambrano) I personally saw the patient and performed the critical portion of the service. I discussed the patient care with the Dr Zambrano. I directed management, care planning and final disposition of the patient. This includes, but not limited to, review of all lab work, radiological studies, EKG's, consultations, vital signs, and nursing notes. EKG interpreted by me (3pts min.) @ [as above] X-Rays interpreted by me (1 pt min.) @ [yes negative for acute disease] CT interpreted by me ( 1pt min.) @ [none] U/S interpreted by me (1 pt min.) @ [none] Critical care time of [0] minutes excluding separately billable procedures was spent in conjunction with critical care activities provided by the Resident and Attending simultaneously. I was present during [no procedures] for all critical portions of the procedure and as immediately available to furnish service during the entire procedure. (Stas Mathis) - Lab Data Lab Results 04/10/25 04/10/25 04/10/25 Range/Units 22:03 22:03 22:03 WBC 14.11 H (4.50-10.00) 10*3/uL RBC 3.88 L (4.40-5.60) 10*6/uL Hgb 10.1 L (13.0-17.0) g/dL Hct 32.3 L (39.6-50.0) % MCV 83.2 (80.0-97.0) fL MCH 26.0 L (27.0-32.0) pg MCHC 31.3 L (32.0-37.0) g/dL Plt Count 311 (140-440) 10*3/uL MPV 10.2 (9.5-12.2) fL Immature Gran % (Auto) 2.0 % Neutrophils % 68.9 % Lymphocytes % 16.4 % Monocytes % 11.8 % Eosinophils % 0.5 % Basophils % 0.4 % Immature Gran # 0.28 H (0.00-0.04) 10*3/uL Neutrophils # 9.73 H (1.80-7.70) 10*3/uL Lymphocytes # 2.32 (0.90-5.00) 10*3/uL Monocytes # 1.66 H (0.20-1.00) 10*3/uL Eosinophils # 0.07 (0.04-0.35) 10*3/uL Basophils # 0.05 (0.00-0.10) 10*3/uL ESR 74 H (0-20) mm/Hr PT 10.9 (10.0-12.5) sec INR 1.0 (<1.2) APTT 28.1 (22.0-30.0) sec Sodium 135 L (137-145) mmol/L Potassium 4.5 (3.5-5.1) mmol/L Chloride 97 L (98-107) mmol/L Carbon Dioxide 29 (22-30) mmol/L Anion Gap 9 mmol/L BUN 42 H (9-20) mg/dL Creatinine 1.80 H (0.66-1.25) mg/dL Est GFR (CKD-EPI)AfAm 49 (>60 ml/min/1.73 sqM) Est GFR (CKD-EPI)NonAf 42 (>60 ml/min/1.73 sqM) Glucose 88 (74-99) mg/dL Calcium 10.4 H (8.4-10.2) mg/dL Total Bilirubin 0.4 (0.2-1.3) mg/dL AST 25 (17-59) U/L ALT 13 (4-49) U/L Alkaline Phosphatase 47 (38-126) U/L C-Reactive Protein 15.0 H (<1.0) mg/dL Total Protein 6.6 (6.3-8.2) g/dL Albumin 3.8 (3.5-5.0) g/dL Disposition Time of Disposition: 23:02 <Morena Zambrano - Last Filed: 04/11/25 00:10> <Stas Mathis - Last Filed: 04/18/25 19:40> Clinical Impression: Osteomyelitis Disposition: ADMITTED IP TO THIS [facility] Condition: Stable
[2025-04-10] MEDS: MORPHINE SULFATE 4 MG/ML SYRINGE IVP STA (22:17)
[2025-04-10] MEDS: SODIUM CHLORIDE 0.9% 1,000 ML IV ONE (22:17)
[2025-04-10 22:22] LABS: Partial Thromboplastin Time 28.1 sec (22.0-30.0); Prothrombin Time 10.9 sec (10.0-12.5)
[2025-04-10 22:26] LABS: ALT 13 U/L (4-49); AST 25 U/L (17-59); African American GFR (CKD) 49 (>60 ml/min/1.73 sqM); Albumin 3.8 g/dL (3.5-5.0); Alkaline Phosphatase 47 U/L (38-126); Anion Gap 9 mmol/L; Blood Urea Nitrogen 42 mg/dL (9-20); Calcium 10.4 mg/dL (8.4-10.2); Carbon Dioxide 29 mmol/L (22-30); Chloride 97 mmol/L (98-107); Glucose 88 mg/dL (74-99); Non-African American GFR(CKD) 42 (>60 ml/min/1.73 sqM); Potassium 4.5 mmol/L (3.5-5.1); Sodium 135 mmol/L (137-145); Total Bilirubin 0.4 mg/dL (0.2-1.3); Total Protein 6.6 g/dL (6.3-8.2)
[2025-04-10] MEDS: VANCOMYCIN 1,750 MG in SODIUM CHLORIDE 0.9% 500 ML 500 ML IVPB ONE (22:36)
[2025-04-10] MEDS ORDERED: NALOXONE 0.4 MG/ML 1 ML VIAL IV PRN (23:04)
[2025-04-11] MEDS: HYDROmorphone 1 MG/ML 1 ML SYRINGE IVP PRN ×2 (00:01→20:20)
[2025-04-11] MEDS: LEVOFLOXACIN 750MG-D5W PMX 750 MG in DEXTROSE/WATER 1 150ML.BAG IVPB SCH (01:57)
[2025-04-11 04:05] LABS: Erythrocyte Sedimentation Rate 74 mm/Hr (0-20)
[2025-04-11 07:26] LABS: ALT 11 U/L (4-49); AST 15 U/L (17-59); African American GFR (CKD) 62 (>60 ml/min/1.73 sqM); Albumin 3.3 g/dL (3.5-5.0); Alkaline Phosphatase 42 U/L (38-126); Anion Gap 8 mmol/L; Blood Urea Nitrogen 37 mg/dL (9-20); Calcium 9.6 mg/dL (8.4-10.2); Carbon Dioxide 27 mmol/L (22-30); Chloride 101 mmol/L (98-107); Glucose 107 mg/dL (74-99); Non-African American GFR(CKD) 54 (>60 ml/min/1.73 sqM); Potassium 4.1 mmol/L (3.5-5.1); Sodium 136 mmol/L (137-145); Total Bilirubin 0.4 mg/dL (0.2-1.3); Total Protein 5.9 g/dL (6.3-8.2)
[2025-04-11 07:29] LABS: Basophils # (A) 0.06 10*3/uL (0.00-0.10); Basophils % (A) 0.8 %; Eosinophils # (A) 0.08 10*3/uL (0.04-0.35); Eosinophils % (A) 1.1 %; HCT 38.1 % (39.6-50.0); HGB 11.8 g/dL (13.0-17.0); Lymphocytes # (A) 1.14 10*3/uL (0.90-5.00); MCH 26.2 pg (27.0-32.0); MCV 84.7 fL (80.0-97.0); Mean Platelet Volume 10.8 fL (9.5-12.2); Monocytes # (A) 0.91 10*3/uL (0.20-1.00); Neutrophils # (A) 5.21 10*3/uL (1.80-7.70); Neutrophils % (A) 68.7 %; Platelet Count 246 10*3/uL (140-440); RDW 15.6 % (11.5-14.5); WBC 7.58 10*3/uL (4.50-10.00)
[2025-04-11] MEDS: ENOXAPARIN 40 MG/0.4 ML SYRINGE SQ SCH (08:55)
[2025-04-11] MEDS: NICOTINE 14MG/24HR PATCH TRANSDERM SCH (08:57)
[2025-04-11] MEDS ORDERED: CYCLOBENZAPRINE 10 MG TAB PO PRN (11:55)
[2025-04-11] MEDS: KETOROLAC 15 MG/ML 1 ML VIAL IM SCH (13:27)
[2025-04-11] MEDS: CEFEPIME 2 GM in SODIUM CHLORIDE 0.9% 100 ML IVPB SCH (13:54)
[2025-04-11] MEDS: IPRATROPIUM-ALBUTEROL 3 ML NEB INHALATION SCH (15:57)
[2025-04-11] MEDS: HYDROcodone/APAP 10-325MG 1 EACH TAB PO SCH (15:59)
[2025-04-11] MEDS ORDERED: IBUPROFEN 800 MG TAB PO SCH (16:00)
[2025-04-11] MEDS: VANCOMYCIN 1,750 MG in SODIUM CHLORIDE 0.9% 500 ML 500 ML IVPB SCH (17:23)
[2025-04-11] MEDS: lisinopriL 20 MG TAB PO SCH (20:07)
[2025-04-11] MEDS: ALPRAZolam 1 MG TAB PO SCH (20:07)
[2025-04-11] MEDS: CYCLOBENZAPRINE 10 MG TAB PO SCH (20:07)
[2025-04-11] MEDS: metFORMIN 500 MG TAB PO SCH (20:07)
[2025-04-11] MEDS: DOCUSATE 100 MG CAP PO SCH (20:07)
[2025-04-11] MEDS: DIVALPROEX 500 MG TABLET.DR PO SCH (20:08)
--- NOTE | 2025-04-11 21:33 | P.CONS ---
History of Present Illness - Reason for Consult Consult date: 04/11/25 Osteomyelitis Requesting physician: Morena Zambrano - Chief Complaint Right lower extremity nonhealing wound x weeks - History of Present Illness Patient is a 50-year-old male with a past medical history difficult for hypertension hyperlipidemia osteoarthritis reflux and did have a previous history of fracture to the right ankle area for which the patient did have a underlying hardware subsequently developing a wound on the right lateral malleolus that was not healing patient did have a removal of the hardware at [facility] about 3 weeks ago and closure of the wound with the help of plastic surgery apparently the patient did have some culture done and has been treated with oral Levaquin subsequently did have dehiscence of his wound for the patient has been evaluated in the outpatient setting and apparently did have MRI that has been suggestive of osteomyelitis for the patient was advised to go to the hospital. Patient denies high-grade fever or any chills no headache chest pain shortness of breath or cough no nausea vomiting abdominal pain vomiting diarrhea has been complaining of pain to the right lower extremity wound area to be sharp moderate to severe intensity worse with touching and did have some foul-smelling drainage patient did have x-rays done which mention postsurgical changes to distal fibula with hardware removed soft tissue swelling present suggestive of cellulitis no subcutaneous Case patient on presentation to the hospital was afebrile he was nontachycardic hypertensive or hypoxic did have a white count of 14.11 with a left shift BUN and creatinine has been elevated though creatinine slightly down to 1.48 today Review of Systems Positive point and negatives has been mentioned in the HPI, complete review of systems was performed and all other systems are negative Past Medical History Past Medical History: Cancer, GERD/Reflux, Hyperlipidemia, Hypertension, Osteoarthritis (OA), Sleep Apnea/CPAP/BIPAP Additional Past Medical History / Comment(s): Hx testicular cancer in 1995 with chemotherapy and surgery. CPAP use. "Lost weight, no problems with sugar since". Chronic back and neck pain History of Any Multi-Drug Resistant Organisms: None Reported Past Surgical History: Orthopedic Surgery Additional Past Surgical History / Comment(s): CERVICAL SURGERY 09/28/19.Right leg fracture with repair, bilateral lymph node disection, left testicle removed, Spermatocele surgery, left eye surgery X2/ retinal reattachment surgery. Past Anesthesia/Blood Transfusion Reactions: Previous Problems w/ Anesthesia Additional Past Anesthesia/Blood Transfusion Reaction / Comm: Has woken up during surgery. Past Psychological History: Anxiety Additional Psychological History / Comment(s): "No problems with depression now, just when my Dad ." Smoking Status: Current every day smoker Past Alcohol Use History: None Reported Additional Past Alcohol Use History / Comment(s): Has been smoking since 1988, 1/3 ppd now. Past Drug Use History: Marijuana - Past Family History Father Family Medical History: Myocardial Infarction ([place]) Medications and Allergies Home Medications Medication Instructions Recorded Confirmed Type Divalproex Sodium [Depakote] 500 mg PO BID 09/20/19 04/11/25 History amLODIPine [Norvasc] 5 mg PO DAILY 09/20/19 04/11/25 History ALPRAZolam [Xanax] 1 mg PO BID 09/21/19 04/11/25 History Cyclobenzaprine [Flexeril] 10 mg PO HS 09/26/19 04/11/25 History Ibuprofen [Motrin] 800 mg PO TID 09/26/19 04/11/25 History Magnesium 500 mg PO DAILY 11/27/21 04/11/25 History HYDROcodone/APAP 10-325MG [[place] 2 tab PO TID 12/03/21 04/11/25 History 10-325] Cyclobenzaprine [Flexeril] 10 mg PO DAILY PRN 04/11/25 04/11/25 History Docusate [Colace] 100 mg PO HS 04/11/25 04/11/25 History Ferrous Sulfate [Feosol] 325 mg PO DAILY 04/11/25 04/11/25 History Furosemide [Lasix] 40 mg PO DAILY 04/11/25 04/11/25 History Insulin Lispro [humaLOG Kwikpen] See Protocol SQ AC-TID 04/11/25 04/11/25 History Levofloxacin [Levaquin] 750 mg PO DAILY 04/11/25 04/11/25 History Omeprazole [PriLOSEC] 40 mg PO DAILY 04/11/25 04/11/25 History Potassium Chloride [Klor-Con M20] 10 meq PO DAILY 04/11/25 04/11/25 History Zinc Gluconate [Zinc] 50 mg PO DAILY 04/11/25 04/11/25 History lisinopriL 40 mg PO BID 04/11/25 04/11/25 History metFORMIN HCL [Glucophage] 500 mg PO BID 04/11/25 04/11/25 History oxyCODONE HCL [oxyCODONE HCL (IR)] 10 mg PO Q4H PRN 04/11/25 04/11/25 History predniSONE [Deltasone] 5 - 10 mg PO DAILY 04/11/25 04/11/25 History Allergies Allergy/AdvReac Type Severity Reaction Status Date / Time bee venom protein (honey bee) Allergy Anaphylaxis Verified 04/11/25 08:12 Penicillins Allergy Unknown Verified 04/11/25 08:12 Childhood Physical Exam Vitals: Vital Signs Temp Pulse Pulse Resp BP BP Pulse Ox 04/11/25 07:00 98.1 F 98 19 117/75 96 04/11/25 01:35 98.6 F 81 18 104/68 98 04/11/25 01:02 98.2 F 97 18 114/71 98 04/10/25 23:22 97.9 F 98 18 105/69 97 04/10/25 20:40 97.7 F 108 H 20 94/58 98 Intake and Output 04/10/25 04/11/25 04/11/25 22:59 06:59 14:59 Intake Total 1010 472 Output Total 480 200 Balance 530 272 Intake: Intake, IV Titration 650 Amount Levofloxacin 750Mg-D5w 150 Pmx 750 mg In Dextrose/ Water 1 150ml.bag @ 100 mls/hr IVPB DAILY@0000 [facility] Rx#:[id number] Vancomycin 1,750 mg In 500 Sodium Chloride 0.9% 500 ml 500 ml @ 167 mls/hr IVPB Q16H [facility] Rx#: [id number] Oral 360 472 Output: Urine 480 200 Other: Voiding Method Urinal Weight 102.058 kg 102.058 kg GENERAL DESCRIPTION: Middle-age male lying in bed, no distress. No tachypnea or accessory muscle of respiration use. HEENT: Shows Pallor , no scleral icterus. Oral mucous membrane is dry. NECK: Trachea central, no thyromegaly. LUNGS: Unlabored breathing. Clear to auscultation anteriorly. No wheeze or crackle. HEART: S1, S2, regular rate and rhythm. No loud murmur ABDOMEN: Soft, no tenderness , guarding or rigidity, no organomegaly EXTREMITIES: Right lower extremity lateral border did have a wound with slough tissue and drainage which has been cultured there is some stitches which are still intact in the wound bed SKIN: No rash, no masses palpable. NEUROLOGICAL: The patient is awake, alert, oriented x3, mood and affect normal. Results CBC & Chem 7: 04/11/25 06:34 04/11/25 06:34 Labs: Abnormal Lab Results - Last 24 Hours (Table) 04/10/25 04/10/25 04/11/25 Range/Units 22:03 22:03 06:34 WBC 14.11 H (4.50-10.00) 10*3/uL RBC 3.88 L (4.40-5.60) 10*6/uL Hgb 10.1 L 11.8 L (13.0-17.0) g/dL Hct 32.3 L 38.1 L (39.6-50.0) % MCH 26.0 L 26.2 L (27.0-32.0) pg MCHC 31.3 L 31.0 L (32.0-37.0) g/dL Immature Gran # 0.28 H 0.18 H (0.00-0.04) 10*3/uL Neutrophils # 9.73 H (1.80-7.70) 10*3/uL Monocytes # 1.66 H (0.20-1.00) 10*3/uL ESR 74 H (0-20) mm/Hr Sodium 135 L (137-145) mmol/L Chloride 97 L (98-107) mmol/L BUN 42 H (9-20) mg/dL Creatinine 1.80 H (0.66-1.25) mg/dL Glucose (74-99) mg/dL Calcium 10.4 H (8.4-10.2) mg/dL AST (17-59) U/L C-Reactive Protein 15.0 H (<1.0) mg/dL Total Protein (6.3-8.2) g/dL Albumin (3.5-5.0) g/dL 04/11/25 Range/Units 06:34 WBC (4.50-10.00) 10*3/uL RBC (4.40-5.60) 10*6/uL Hgb (13.0-17.0) g/dL Hct (39.6-50.0) % MCH (27.0-32.0) pg MCHC (32.0-37.0) g/dL Immature Gran # (0.00-0.04) 10*3/uL Neutrophils # (1.80-7.70) 10*3/uL Monocytes # (0.20-1.00) 10*3/uL ESR (0-20) mm/Hr Sodium 136 L (137-145) mmol/L Chloride (98-107) mmol/L BUN 37 H (9-20) mg/dL Creatinine 1.48 H (0.66-1.25) mg/dL Glucose 107 H (74-99) mg/dL Calcium (8.4-10.2) mg/dL AST 15 L (17-59) U/L C-Reactive Protein (<1.0) mg/dL Total Protein 5.9 L (6.3-8.2) g/dL Albumin 3.3 L (3.5-5.0) g/dL Assessment and Plan (1) Osteomyelitis of right fibula Current Visit: Yes Status: Acute Code(s): M86.9 - OSTEOMYELITIS, UNSPECIFIED SNOMED Code(s): 65636135 (2) Leg wound, right Current Visit: Yes Status: Acute Code(s): S81.801A - UNSPECIFIED OPEN WOUND, RIGHT LOWER LEG, INITIAL ENCOUNTER SNOMED Code(s): 12182715323663317 (3) Failure of outpatient treatment Current Visit: Yes Status: Acute Code(s): Z78.9 - OTHER SPECIFIED HEALTH STA TUS SNOMED Code(s): 560507316 (4) Penicillin allergy Current Visit: Yes Status: Acute Code(s): Z88.0 - ALLERGY STATUS TO PENICILLIN SNOMED Code(s): 29084254 Plan: 1patient with a complicated history of a nonhealing wound to the right lateral malleolar area with underlying hardware which has been recently removed at [facility] about 3 weeks before presentation to hospital apparently the wound was closed with the help of the plastic surgery now with dehiscence of the wound and outpatient MRI suggestive of osteomyelitis 2-penicillin allergy that we will limit the number for antibiotic safety use however patient mention has taken amoxicillin clinical doubt true penicillin allergy 3-we will try to obtain operative cultures from [facility] and some culture have been obtained at the bedside today results will be followed 4-patient will be treated with vancomycin pharmacy to dose however discontinue Levaquin and add cefepime for better gram-negative coverage while waiting for the workup to be completed We will follow on clinical condition and cultures to further adjust medication if needed Thank you for this consultation we will follow the patient along with you Dictation was produced using [employer] dictation software. please excuse any grammatical, word or spelling errors. Time with Patient: Greater than 30
[2025-04-12] MEDS: KETOROLAC 15 MG/ML 1 ML VIAL IVP SCH (00:40)
--- NOTE | 2025-04-12 04:24 | HP ---
HISTORY AND PHYSICAL HISTORY OF PRESENT ILLNESS: A 50-year-old white male with right lower extremity nonhealing wound for multiple weeks. He was found to have osteomyelitis on MRI and is admitted for PICC line and for IV antibiotics for cellulitis and open wound of the right distal leg. MRI shows osteomyelitis. PAST MEDICAL HISTORY: Sleep apnea, history of sepsis, asthma, COPD, hypertension, dyslipidemia, cancer, GERD, cervical surgery, spermatocele surgery, retinal detachment surgery, chronic neck and back pain, CPAP use. SOCIAL HISTORY: Current everyday smoker, marijuana. FAMILY HISTORY: Father with myocardial infarction. MEDICATIONS: 1. Prilosec 40 daily. 2. Potassium 10 mEq daily. 3. Zinc 50 mg daily. 4. Metformin 500 b.i.d. 5. 5-10 mg daily. 6. Oxycodone 10 mg q.6 hours p.r.n. ALLERGIES: Bee venom, penicillin. PHYSICAL EXAMINATION: VITAL SIGNS: Temperature 98.2, pulse 98, respiratory rate 18 to 20, blood pressure 117/56, and O2 of 96%-98%. HEENT: Normocephalic, atraumatic. LUNGS: Transmitted breath sounds. CARDIOVASCULAR: S1, S2. HEMATOLOGIC: Negative Homans. MUSCULOSKELETAL: Right lower extremity has open, wound on the lateral malleolus about 6 inches x 3 inches into the dermal layer. Osteomyelitis, leg wound on the right, failed outpatient treatment. Penicillin allergy, status post hardware repair 3 weeks ago. Plastic Surgery started on IV antibiotics, vancomycin and cefepime. Follow up with Dr. Cordero to set up a PICC line for home IV antibiotics. MMODL / IJN: [id number] /
[2025-04-12 07:42] LABS: African American GFR (CKD) >90 (>60 ml/min/1.73 sqM); Non-African American GFR(CKD) 89 (>60 ml/min/1.73 sqM)
[2025-04-12] MEDS: FERROUS SULFATE 325 MG TAB PO SCH (09:03)
[2025-04-12] MEDS: MAGNESIUM OXIDE 400 MG TAB PO SCH (09:03)
[2025-04-12] MEDS: amLODIPine 5 MG TAB PO SCH (09:04)
[2025-04-12] MEDS: FUROSEMIDE 40 MG TAB PO SCH (09:04)
[2025-04-12] MEDS: PANTOPRAZOLE 40 MG TABLET PO SCH (09:04)
[2025-04-12] MEDS: ZINC SULFATE 220 MG CAP PO SCH (09:05)
[2025-04-12] MEDS: POTASSIUM CHLORIDE ER 10 MEQ TAB.ER.PRT PO SCH (09:05)
--- NOTE | 2025-04-12 13:01 | P.PN ---
Subjective Progress Note Date: 04/12/25 Principal diagnosis: Reason for follow-up is right leg wound and osteomyelitis Patient is a 50-year-old male with a past medical history difficult for hypertension hyperlipidemia osteoarthritis reflux with a nonhealing wound to the right lateral malleolar area with recent removal of the hardware and outpatient MRI suggestive of osteomyelitis. On today's evaluation that is 04/12/2025, Patient is afebrile patient is currently on room air and denies having any shortness of breath, the patient denies any chest pain or cough, the patient denies any nausea vomiting did not have any abdominal pain and no diarrhea still complaining of pain to the right lateral leg wound area but no worsening. Patient white count normalized to 7.58 creatinine 0.98 cultures currently g rowing Staph aureus blood cultures are pending Objective - Vital Signs Vital signs: Vital Signs Temp 98.0 F 04/12/25 07:00 Pulse 77 04/12/25 07:00 Resp 17 04/12/25 07:00 BP 116/75 04/12/25 07:00 Pulse Ox 97 04/12/25 07:00 FiO2 Intake & Output 04/11/25 04/12/25 04/12/25 18:59 06:59 18:59 Intake Total 952 Output Total 200 350 Balance 752 -350 Intake: Oral 952 Output: Urine 200 350 Other: Voiding Method Urinal Urinal # Bowel Movements 0 - Exam GENERAL DESCRIPTION: Middle-age male lying in bed in no distress RESPIRATORY SYSTEM: Unlabored breathing , decreased breath sounds at bases HEART: S1 S2 regular rate and rhythm , ABDOMEN: Soft , no tenderness EXTREMITIES: Right leg wound is currently dressed no drainage - Labs CBC & Chem 7: 04/11/25 06:34 04/12/25 06:50 Labs: Microbiology - Last 24 Hours (Table) 04/11/25 12:38 Gram Stain - Preliminary Ankle - Right Wound Culture - Preliminary Presumptive Staph aureus 04/10/25 22:03 Blood Culture - Preliminary Blood Assessment and Plan (1) Osteomyelitis of right fibula Current Visit: Yes Status: Acute Code(s): M86.9 - OSTEOMYELITIS, UNSPECIFIED SNOMED Code(s): 14565557 (2) Leg wound, right Current Visit: Yes Status: Acute Code(s): S81.801A - UNSPECIFIED OPEN WOUND, RIGHT LOWER LEG, INITIAL ENCOUNTER SNOMED Code(s): 27965625585418242 (3) Failure of outpatient treatment Current Visit: Yes Status: Acute Code(s): Z78.9 - OTHER SPECIFIED HEALTH STATUS SNOMED Code(s): 663725430 (4) Penicillin allergy Current Visit: Yes Status: Acute Code(s): Z88.0 - ALLERGY STATUS TO PENICILLIN SNOMED Code(s): 82872803 Plan: 1patient with a complicated history of a nonhealing wound to the right lateral malleolar area with underlying hardware which has been recently removed at [facility] about 3 weeks before presentation to hospital apparently the wound was closed with the help of the plastic surgery now with dehiscence of the wound and outpatient MRI suggestive of osteomyelitis 2-penicillin allergy that we will limit the number for antibiotic safety use however patient mention has taken amoxicillin clinical doubt true penicillin allergy 3-local culture pain currently growing Staph aureus sensitivities pending still waiting for culture from [facility] 4-patient currently treated vancomycin pharmacy to dose and cefepime while waiting for the culture to finalize PICC line has been ordered for outpatient IV antibiotics therapy and casework manager to arrange for outpatient IV antibiotics Dictation was produced using [employer] dictation software. please excuse any grammatical, word or spelling errors. Time with Patient: Less than 30
[2025-04-12] MEDS: HYDROmorphone 1 MG/ML 1 ML SYRINGE IVP SCH (13:17)
[2025-04-12] MEDS: VANCOMYCIN 1,750 MG in SODIUM CHLORIDE 0.9% 500 ML 500 ML IVPB SCH (18:00)
[2025-04-13] MEDS: ACETAMINOPHEN TAB 500 MG TAB PO PRN (06:18)
[2025-04-13] MEDS: VANCOMYCIN TROUGH DUE 1 EACH MISC MISCELLANE ONE (06:27)
[2025-04-13 06:46] LABS: African American GFR (CKD) 90 (>60 ml/min/1.73 sqM); Non-African American GFR(CKD) 78 (>60 ml/min/1.73 sqM)
[2025-04-13 07:09] LABS: Influenza A Not Detected (Not Detectd); Influenza B Not Detected (Not Detectd); RSV Not Detected (Not Detectd)
--- NOTE | 2025-04-13 07:21 | PN ---
PROGRESS NOTE SUBJECTIVE: 50-year-old white male with osteomyelitis of the right foot talar aspect. Waiting for cultures to finalize. Get him a PICC line and get him home on IV antibiotics. He has presumptive Staph aureus. Further culture and sensitivity are pending. Pain control is hard per the patient. OBJECTIVE: VITAL SIGNS: So far, his blood pressure is 116/75, O2 of 97, temp 98.2, pulse 77, and respiratory rate 18. PSYCH: He is not suicidal. He is not homicidal. States he never threatened anybody with cord around the neck to any of the nurses. He is alert and oriented x3, given appropriate answers. CARDIOVASCULAR: S1, S2. LUNGS: Clear. GI: Soft. EXTREMITIES: Right leg is wrapped. There is a huge lateral opening on the right lateral ankle where looks like he has possibly some plastic surgery. Bone scan was positive for osteomyelitis, growing Staph aureus. Continue with IV antibiotics, cefepime. Continue his sleep apnea, CPAP at night. Continue current treatment. Wait for PICC line. IV antibiotics when sensitivities back. Pain control is OxyIR 10 every 4 hours, alternating with Dilaudid 1.5 q.4. We alternate them every 2 hours. MMODL / IJN: [id number] /
--- NOTE | 2025-04-13 14:54 | P.PN ---
Subjective Progress Note Date: 04/13/25 Principal diagnosis: Reason for follow-up is right leg wound and osteomyelitis Patient is a 50-year-old male with a past medical history difficult for hypertension hyperlipidemia osteoarthritis reflux with a nonhealing wound to the right lateral malleolar area with recent removal of the hardware and outpatient MRI suggestive of osteomyelitis. On today's evaluation that is 04/13/2025, patient has been afebrile, patient is breathing comfortably and is currently on room air, patient denies having any chest pain and cough, patient denies nausea vomiting or diarrhea and no abdominal pain still complaining of pain to the right lower leg but denies any worsening. Patient did have a creatinine 1.09 cultures been finalized with MSSA blood culture has been negative Objective - Vital Signs Vital signs: Vital Signs Temp 98.2 F 04/13/25 09:47 Pulse 104 H 04/13/25 07:32 Resp 24 04/13/25 07:32 BP 111/68 04/13/25 09:47 Pulse Ox 96 04/13/25 07:32 FiO2 Intake & Output 04/12/25 04/13/25 04/13/25 18:59 06:59 18:59 Intake Total 480 120 Output Total 1100 Balance 480 -1100 120 Intake: Oral 480 120 Output: Urine 1100 Other: Voiding Method Urinal Urinal Urinal # Voids 2 - Exam GENERAL DESCRIPTION: Middle-age male lying in bed in no distress RESPIRATORY SYSTEM: Unlabored breathing , decreased breath sounds at bases HEART: S1 S2 regular rate and rhythm , ABDOMEN: Soft , no tenderness EXTREMITIES: Right leg wound is currently dressed no drainage - Labs CBC & Chem 7: 04/11/25 06:34 04/13/25 06:09 Labs: Microbiology - Last 24 Hours (Table) 04/11/25 12:38 Gram Stain - Final Ankle - Right Wound Culture - Final Staphylococcus aureus 04/10/25 22:03 Blood Culture - Preliminary Blood Assessment and Plan (1) Osteomyelitis of right fibula Current Visit: Yes Status: Acute Code(s): M86.9 - OSTEOMYELITIS, UNSPECIFIED SNOMED Code(s): 90535188 (2) Leg wound, right Current Visit: Yes Status: Acute Code(s): S81.801A - UNSPECIFIED OPEN WOUND, RIGHT LOWER LEG, INITIAL ENCOUNTER SNOMED Code(s): 49687777209648949 (3) Failure of outpatient treatment Current Visit: Yes Status: Acute Code(s): Z78.9 - OTHER SPECIFIED HEALTH STATUS SNOMED Code(s): 871903359 (4) Penicillin allergy Current Visit: Yes Status: Acute Code(s): Z88.0 - ALLERGY STATUS TO PENICILLIN SNOMED Code(s): 87314958 Plan: 1patient with a complicated history of a nonhealing wound to the right lateral malleolar area with underlying hardware which has been recently removed at [facility] about 3 weeks before presentation to hospital apparently the wound was closed with the help of the plastic surgery now with dehiscence of the wound and outpatient MRI suggestive of osteomyelitis 2-penicillin allergy that we will limit the number for antibiotic safety use however patient mention has taken amoxicillin clinical doubt true penicillin allergy 3-local culture pain currently growing MSSA 4-patient did have a PICC line placement I will discontinue vancomycin and cefepime started patient on cefazolin 3 g every 8 hours which he will need for 6 weeks on discharge outpatient prescription provided to the infusion company and close outpatient follow-up with weekly monitoring of CRP and a sed rate Dictation was produced using [employer] dictation software. please excuse any grammatical, word or spelling errors. Time with Patient: Less than 30
[2025-04-13] MEDS: ceFAZolin 3 GM in SODIUM CHLORIDE 0.9% 100 ML IVPB SCH (17:41)
--- NOTE | 2025-04-14 02:27 | PN ---
PROGRESS NOTE SUBJECTIVE: Rayray Puri admitted for osteomyelitis of the right foot. Starting to get final cultures and PICC line. Prior to going home, he spiked a fever of 101. Over the last 24 hours, been having fevers. COVID, RSV, and influenza have been checked. OBJECTIVE: VITAL SIGNS: Temperature currently at this time is 98.6, blood pressure 148/67, O2 of 98 on 2 L, respiratory rate 16 to 18. CARDIOVASCULAR: S1, S2. LUNGS: Transmitted upper airway sounds. GI: Soft. EXTREMITIES: Show wound on the right lateral leg. LABORATORIES: Show white count is down from 14 to 7.58, hemoglobin is stable at 11.8. Sodium 136, potassium 4.1, BUN 37, creatinine 1.48, GFR of 54, albumin is 3.3. . He is negative for influenza, RSV, and COVID. ASSESSMENT: Osteomyelitis, PICC line, cultures all pending. Wait for final cultures, sensitivity and possibly get PICC line for him to go on IV antibiotics for 6 weeks. Prognosis guarded. He is resistant to Bactrim on cultures long-term antibiotics for osteomyelitis of the right foot, has obstructive sleep apnea, obesity. Prognosis is guarded. Please see further orders. MMODL / IJN: [id number] /
[2025-04-14 07:21] LABS: African American GFR (CKD) >90 (>60 ml/min/1.73 sqM); Non-African American GFR(CKD) >90 (>60 ml/min/1.73 sqM)
--- NOTE | 2025-04-14 14:27 | P.PN ---
Subjective Progress Note Date: 04/14/25 Principal diagnosis: Reason for follow-up is right leg wound and osteomyelitis Patient is a 50-year-old male with a past medical history difficult for hypertension hyperlipidemia osteoarthritis reflux with a nonhealing wound to the right lateral malleolar area with recent removal of the hardware and outpatient MRI suggestive of osteomyelitis. On today's evaluation that is 04/14/2025, Patient is afebrile this morning patient denies having any chest pain shortness of breath or cough, the patient is currently on room air, patient denies any abdominal pain no diarrhea no nausea no vomiting, pain to the right left leg is currently controlled. Patient did have a creatinine 0.87 ESR of 74 CRP of 15.2 local culture MSSA noted cultures currently pending Objective - Vital Signs Vital signs: Vital Signs Temp 99.1 F 04/14/25 08:12 Pulse 94 04/14/25 08:12 Resp 17 04/14/25 08:00 BP 146/74 04/14/25 08:12 Pulse Ox 96 04/14/25 08:12 FiO2 Intake & Output 04/13/25 04/14/25 04/14/25 18:59 06:59 18:59 Intake Total 220 100 Output Total 1000 1000 Balance 220 -1000 -900 Intake: Oral 220 100 Output: Urine 1000 1000 Other: Voiding Method Urinal Urinal Urinal # Voids 1 0 0 # Bowel Movements 0 - Exam GENERAL DESCRIPTION: Middle-age male lying in bed in no distress RESPIRATORY SYSTEM: Unlabored breathing , decreased breath sounds at bases HEART: S1 S2 regular rate and rhythm , ABDOMEN: Soft , no tenderness EXTREMITIES: Right leg wound is currently dressed no drainage - Labs CBC & Chem 7: 04/11/25 06:34 04/14/25 06:47 Labs: Microbiology - Last 24 Hours (Table) 04/10/25 22:03 Blood Culture - Preliminary Blood 04/11/25 12:38 Anaerobic Culture - Preliminary Ankle - Right 04/11/25 12:38 Gram Stain - Final Ankle - Right Wound Culture - Final Staphylococcus aureus Assessment and Plan (1) Osteomyelitis of right fibula Current Visit: Yes Status: Acute Code(s): M86.9 - OSTEOMYELITIS, UNSPECIFIED SNOMED Code(s): 77384631 (2) Leg wound, right Current Visit: Yes Status: Acute Code(s): S81.801A - UNSPECIFIED OPEN WOUND, RIGHT LOWER LEG, INITIAL ENCOUNTER SNOMED Code(s): 53942775278159144 (3) Failure of outpatient treatment Current Visit: Yes Status: Acute Code(s): Z78.9 - OTHER SPECIFIED HEALTH STATUS SNOMED Code(s): 623118135 (4) Penicillin allergy Current Visit: Yes Status: Acute Code(s): Z88.0 - ALLERGY STATUS TO PENICILLIN SNOMED Code(s): 08411431 Plan: 1patient with a complicated history of a nonhealing wound to the right lateral malleolar area with underlying hardware which has been recently removed at [facility] about 3 weeks before presentation to hospital apparently the wound was closed with the help of the plastic surgery now with dehiscence of the wound and outpatient MRI suggestive of osteomyelitis 2-penicillin allergy that we will limit the number for antibiotic safety use however patient mention has taken amoxicillin clinical doubt true penicillin allergy 3-local culture pain currently growing MSSA 4-patient did have a PICC line placement and is currently being treated cefazolin 3 g every 8 hours for 6 weeks antibiotics and close outpatient follow- up advised to follow-up with his plastic surgeon postdischarge for further local wound care Dictation was produced using [employer] dictation software. please excuse any grammatical, word or spelling errors. Time with Patient: Less than 30
[2025-04-14] MEDS: HYDROmorphone 2 MG/ML 1 ML SYRINGE IVP SCH (22:01)
[2025-04-15 08:08] VITALS: BP 129/71; PULSE 75; RESP 19; TEMP 98.1
--- NOTE | 2025-04-15 10:46 | P.DS ---
Providers Date of admission: 04/10/25 23:09 Expected date of discharge: 04/15/25 Attending physician: Bryan Guerrier Consults: 04/10/25 23:06 Consult Physician Routine Consulting Provider: Caleb Okeefe Consult Reason/Comments: osteomyelitis Do you want consulting provider notified?: Yes Primary care physician: [facility] Hospital Course: Patient admitted for right leg wound and osteomyelitis Patient is a 50-year-old male with a past medical history difficult for hypertension hyperlipidemia osteoarthritis reflux with a nonhealing wound to the right lateral malleolar area with recent removal of the hardware and outpatient MRI suggestive of osteomyelitis. Patient remains afebrile this morning patient denies having any chest pain shortness of breath or cough, the patient is currently on room air, patient denies any abdominal pain no diarrhea no nausea no vomiting, pain to the right left leg is currently controlled. Patient did have a creatinine 0.87 ESR of 74 CRP of 15.2 local culture MSSA noted, blood cultures no growth so far ID recommended outpatient antibiotics and to discharge the patient 1patient with a complicated history of a nonhealing wound to the right lateral malleolar area with underlying hardware which has been recently removed at [facility] about 3 weeks before presentation to hospital apparently the wound was closed with the help of the plastic surgery now with dehiscence of the wound and outpatient MRI suggestive of osteomyelitis 2-penicillin allergy that we will limit the number for antibiotic safety use however patient mention has taken amoxicillin clinical doubt true penicillin allergy 3-local culture pain currently growing MSSA 4-patient did have a PICC line placement and is currently being treated cefazolin 3 g every 8 hours for 6 weeks antibiotics and close outpatient follow- up advised to follow-up with his plastic surgeon postdischarge for further local wound care Assessment: (1) Osteomyelitis of right fibula Current Visit: Yes Status: Acute Code(s): M86.9 - OSTEOMYELITIS, UNSPECIFIED SNOMED Code(s): 94263753 (2) Leg wound, right Current Visit: Yes Status: Acute Code(s): S81.801A - UNSPECIFIED OPEN WOUND, RIGHT LOWER LEG, INITIAL ENCOUNTER SNOMED Code(s): 47640195827135560 (3) Failure of outpatient treatment Current Visit: Yes Status: Acute Code(s): Z78.9 - OTHER SPECIFIED HEALTH STATUS SNOMED Code(s): 716724587 (4) Penicillin allergy Current Visit: Yes Status: Acute Code(s): Z88.0 - ALLERGY STATUS TO PENICILLIN SNOMED Code(s): 98911766 Health Concerns: 1patient with a complicated history of a nonhealing wound to the right lateral malleolar area with underlying hardware which has been recently removed at [facility] about 3 weeks before presentation to hospital apparently the wound was closed with the help of the plastic surgery now with dehiscence of the wound and outpatient MRI suggestive of osteomyelitis 2-penicillin allergy that we will limit the number for antibiotic safety use however patient mention has taken amoxicillin clinical doubt true penicillin allergy 3-local culture pain currently growing MSSA 4-patient did have a PICC line placement and is currently being treated cefazolin 3 g every 8 hours for 6 weeks antibiotics and close outpatient follow- up advised to follow-up with his plastic surgeon postdischarge for further local wound care Patient Condition at Discharge: Stable Plan - Discharge Summary New Discharge Prescriptions: No Action amLODIPine [Norvasc] 5 mg PO DAILY Divalproex Sodium [Depakote] 500 mg PO BID ALPRAZolam [Xanax] 1 mg PO BID Cyclobenzaprine [Flexeril] 10 mg PO HS Ibuprofen [Motrin] 800 mg PO TID Ferrous Sulfate [Feosol] 325 mg PO DAILY predniSONE [Deltasone] 5 - 10 mg PO DAILY lisinopriL 40 mg PO BID Levofloxacin [Levaquin] 750 mg PO DAILY Furosemide [Lasix] 40 mg PO DAILY Magnesium 500 mg PO DAILY HYDROcodone/APAP 10-325MG [[place] 10-325] 2 tab PO TID Zinc Gluconate [Zinc] 50 mg PO DAILY Potassium Chloride [Klor-Con M20] 10 meq PO DAILY Docusate [Colace] 100 mg PO HS Cyclobenzaprine [Flexeril] 10 mg PO DAILY PRN PRN Reason: Muscle Spasm Insulin Lispro [humaLOG Kwikpen] See Protocol SQ AC-TID metFORMIN HCL [Glucophage] 500 mg PO BID oxyCODONE HCL [oxyCODONE HCL (IR)] 10 mg PO Q4H PRN PRN Reason: Severe Pain (Scale 7 To 10) Omeprazole [PriLOSEC] 40 mg PO DAILY Discharge Medication List Divalproex Sodium [Depakote] 500 mg PO BID 09/20/19 [History] amLODIPine [Norvasc] 5 mg PO DAILY 09/20/19 [History] ALPRAZolam [Xanax] 1 mg PO BID 09/21/19 [History] Cyclobenzaprine [Flexeril] 10 mg PO HS 09/26/19 [History] Ibuprofen [Motrin] 800 mg PO TID 09/26/19 [History] Magnesium 500 mg PO DAILY 11/27/21 [History] HYDROcodone/APAP 10-325MG [[place] 10-325] 2 tab PO TID 12/03/21 [History] Cyclobenzaprine [Flexeril] 10 mg PO DAILY PRN 04/11/25 [History] Docusate [Colace] 100 mg PO HS 04/11/25 [History] Ferrous Sulfate [Feosol] 325 mg PO DAILY 04/11/25 [History] Furosemide [Lasix] 40 mg PO DAILY 04/11/25 [History] Insulin Lispro [humaLOG Kwikpen] See Protocol SQ AC-TID 04/11/25 [History] Levofloxacin [Levaquin] 750 mg PO DAILY 04/11/25 [History] Omeprazole [PriLOSEC] 40 mg PO DAILY 04/11/25 [History] Potassium Chloride [Klor-Con M20] 10 meq PO DAILY 04/11/25 [History] Zinc Gluconate [Zinc] 50 mg PO DAILY 04/11/25 [History] lisinopriL 40 mg PO BID 04/11/25 [History] metFORMIN HCL [Glucophage] 500 mg PO BID 04/11/25 [History] oxyCODONE HCL [oxyCODONE HCL (IR)] 10 mg PO Q4H PRN 04/11/25 [History] predniSONE [Deltasone] 5 - 10 mg PO DAILY 04/11/25 [History] Follow up Appointment(s)/Referral(s): [facility], [NON-STAFF] - 1 Week Bryan Guerrier MD [Primary Care Provider] - 1-2 days [facility]Infusion [NON-STAFF] - 1 Week
== END 2025-04-15 13:14 | disposition home or self-care (01) | DRG 638 ==
LOC: EC 20:40 → 4SSUR 23:09 → 1SOBS 04-11 00:44 → 6NMEDSUR 04-14 18:25
PROVIDERS: ADMIT Family Medicine; ATTEND Family Medicine
PROC: 02HV33Z Insertion of Infusion Device into Superior Vena Cava, Percutaneous Approach (ICD-10-PCS; principal; 2025-04-13 07:30)
DX: E11.69 Type 2 diabetes mellitus with other specified complication (principal); L03.115 Cellulitis of right lower limb; M86.8X6 Other osteomyelitis, lower leg; T81.31XA Disruption of external operation (surgical) wound, not elsewhere classified, initial encounter; J44.89 Other specified chronic obstructive pulmonary disease; I10 Essential (primary) hypertension; Z79.4 Long term (current) use of insulin; E78.5 Hyperlipidemia, unspecified; F17.210 Nicotine dependence, cigarettes, uncomplicated; Y83.8 Other surgical procedures as the cause of abnormal reaction of the patient, or of later complication, without mention of misadventure at the time of the procedure; Z79.84 Long term (current) use of oral hypoglycemic drugs; Z79.899 Other long term (current) drug therapy; Z85.47 Personal history of malignant neoplasm of testis; Z90.79 Acquired absence of other genital organ(s); Z88.0 Allergy status to penicillin; Z79.52 Long term (current) use of systemic steroids
CPT/HCPCS: 36415; 36573; 80053; 80202; 82565; 85025; 85610; 85652; 85730; 86140; 87040; 87070; 87075; 87077; 87086; 87186; 87205; 87636; 96365; 96366; 96375; 99285

== ENCOUNTER 2025-05-08 22:59 | Observation (INO) | payer BC ==
--- NOTE | 2025-05-08 23:39 | ED ---
Recheck HPI - General Chief Complaint: Recheck/Abnormal Lab/Rx Stated Complaint: Picc Line Replacement Time Seen by Provider: 05/08/25 23:39 Source: patient, RN notes reviewed, old records reviewed Mode of arrival: ambulatory Limitations: no limitations - History of Present Illness Initial Comments: 50-year-old male presented to the ER for evaluation of PICC line malfunction. Patient states he has had a PICC line in place for approximately 1 month for treatment of osteomyelitis of right ankle. He currently takes cefazolin 3 times a day and is following up with infectious disease, Dr. Okeefe. Patient states he is nonweightbearing on right lower extremity and is ambulating with crutches. He believes while attempting to place his crutch under his left arm he accidentally dislodged his PICC line. He attempted to flush PICC line with saline flush but states fluid came out around insertion site into dressing. Patient also mentions swelling to right calf. He states his right foot is typically swollen which does increase throughout the day. He states right calf swelling is worse than normal. He denies a history of DVT and/or PEs. No current blood thinner use except for heparin through PICC line. He denies any fevers, chills, nausea, vomiting, chest pain, shortness of breath, palpitations or other complaints at this time. Patient reports he has not received nighttime dose of antibiotic given PICC line issue. - Related Data Home Medications Medication Instructions Recorded Confirmed Divalproex Sodium [Depakote] 500 mg PO BID 09/20/19 04/11/25 amLODIPine [Norvasc] 5 mg PO DAILY 09/20/19 04/11/25 ALPRAZolam [Xanax] 1 mg PO BID 09/21/19 04/11/25 Cyclobenzaprine [Flexeril] 10 mg PO HS 09/26/19 04/11/25 Ibuprofen [Motrin] 800 mg PO TID 09/26/19 04/11/25 Magnesium 500 mg PO DAILY 11/27/21 04/11/25 HYDROcodone/APAP 10-325MG [[place] 2 tab PO TID 12/03/21 04/11/25 10-325] Cyclobenzaprine [Flexeril] 10 mg PO DAILY PRN 04/11/25 04/11/25 Docusate [Colace] 100 mg PO HS 04/11/25 04/11/25 Ferrous Sulfate [Feosol] 325 mg PO DAILY 04/11/25 04/11/25 Furosemide [Lasix] 40 mg PO DAILY 04/11/25 04/11/25 Insulin Lispro [humaLOG Kwikpen] See Protocol SQ AC-TID 04/11/25 04/11/25 Levofloxacin [Levaquin] 750 mg PO DAILY 04/11/25 04/11/25 Omeprazole [PriLOSEC] 40 mg PO DAILY 04/11/25 04/11/25 Potassium Chloride [Klor-Con M20] 10 meq PO DAILY 04/11/25 04/11/25 Zinc Gluconate [Zinc] 50 mg PO DAILY 04/11/25 04/11/25 lisinopriL 40 mg PO BID 04/11/25 04/11/25 metFORMIN HCL [Glucophage] 500 mg PO BID 04/11/25 04/11/25 oxyCODONE HCL [oxyCODONE HCL (IR)] 10 mg PO Q4H PRN 04/11/25 04/11/25 predniSONE [Deltasone] 5 - 10 mg PO DAILY 04/11/25 04/11/25 Allergies Allergy/AdvReac Type Severity Reaction Status Date / Time bee venom protein (honey bee) Allergy Anaphylaxis Verified 05/08/25 23:04 Penicillins Allergy Unknown Verified 05/08/25 23:04 Childhood Review of Systems ROS Statement: Those systems with pertinent positive or pertinent negative responses have been documented in the HPI. ROS Other: All systems not noted in ROS Statement are negative. 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 CPAP use. "Lost weight, no problems with sugar since". Chronic back and neck pain History of Any Multi-Drug Resistant Organisms: None Reported Past Surgical History: Orthopedic Surgery Additional Past Surgical History / Comment(s): CERVICAL SURGERY 09/28/19.Right leg fracture with repair, bilateral lymph node disection, left testicle removed, Spermatocele surgery, left eye surgery X2/ retinal reattachment surgery. Past Anesthesia/Blood Transfusion Reactions: Previous Problems w/ Anesthesia Additional Past Anesthesia/Blood Transfusion Reaction / Comment(s): Has woken up during surgery. Past Psychological History: Anxiety Smoking Status: Current every day smoker Past Alcohol Use History: None Reported Past Drug Use History: Marijuana - Past Family History Father Family Medical History: Myocardial Infarction (ID) General Exam Limitations: no limitations General appearance: alert, in no apparent distress Respiratory exam: Present: normal lung sounds bilaterally. Absent: respiratory distress, wheezes, rales, rhonchi, stridor Cardiovascular Exam: Present: regular rate, normal rhythm, normal heart sounds. Absent: systolic murmur, diastolic murmur, rubs, gallop, clicks Extremities exam: Present: normal capillary refill (2+ bilateral radial pulses. 2+ DP pulses.), pedal edema (Right foot with nonpitting edema extending into calf. Mild erythema without wounds or rash to overlying skin. Wound noted to right lateral malleolus.), other (PICC line left upper extremity. There is no surrounding erythema, wounds, skin breakdown or drainage noted from insertion site) Neurological exam: Present: alert, oriented X3, CN II-XII intact Skin exam: Present: warm, dry, intact, normal color. Absent: rash Course Vital Signs 05/08/25 05/09/25 05/09/25 23:00 00:46 02:00 Temperature 97.9 F 98.7 F Pulse Rate 103 H 85 85 Respiratory 18 16 16 Rate Blood Pressure 152/93 135/84 152/99 O2 Sat by Pulse 95 99 95 Oximetry 05/09/25 02:23 Temperature Pulse Rate 74 Respiratory 16 Rate Blood Pressure 155/68 O2 Sat by Pulse 98 Oximetry - Reevaluation(s) Reevaluation #1: Case discussed with Dr. Guerrier by my attending, Dr. Timmons for admission Medical Decision Making - Medical Decision Making Was pt. sent in by a medical professional or institution (, PA, FORESTRY PROFESSOR, urgent care, hospital, or snf...) When possible be specific @ -No Did you speak to anyone other than the patient for history (EMS, parent, family, police, friend...)? What history was obtained from this source @ -Patient's family, at bedside, aiding in HPI past medical history Did you review nursing and triage notes (agree or disagree)? Why? @ -I reviewed and agree with nursing and triage notes Were old charts reviewed (outside hosp., previous admission, EMS record, old EKG, old radiological studies, urgent care reports/EKG's, snf records)? Report findings @ -Discharge summary from 04-15-25 reviewed. Patient admitted for osteomyelitis of right ankle patient discharged on 3 mg cefazolin every 8 for 6-weeks Differential Diagnosis (chest pain, altered mental status, abdominal pain women, abdominal pain men, vaginal bleeding, weakness, fever, dyspnea, syncope, headache, dizziness, GI bleed, back pain, seizure, CVA, palpatations, mental health, musculoskeletal)? @ -Sepsis, PICC line dislodgment, DVT, cellulitis osteomyelitis... This list is not meant to be all-inclusive EKG interpreted by me (3pts min.). @ -As above X-rays interpreted by me (1pt min.). @ -None done CT interpreted by me (1pt min.). @ -None done U/S interpreted by me (1pt. min.). @ -Venous Doppler right lower extremity negative for acute evidence of DVT What testing was considered but not performed or refused? (CT, X-rays, U/S, labs)? Why? @ -None What meds were considered but not given or refused? Why? @ -None Did you discuss the management of the patient with other professionals (professionals i.e. , PA, FORESTRY PROFESSOR, lab, RT, psych nurse, social service liaison, supervisor curing room, teacher, hydrological technical officer, block and case maker)? Give summary @ -Case discussed by Dr. Guerrier for admission by my attending, Dr. Timmons Was smoking cessation discussed for >3mins.? @ -No Was critical care preformed (if so, how long)? @ -No Were there social determinants of health that impacted care today? How? (Homelessness, low income, unemployed, alcoholism, drug addiction, transportation, low edu. Level, literacy, decrease access to med. care, half-way, rehab)? @ -No Was there de-escalation of care discussed even if they declined (Discuss DNR or withdrawal of care, Hospice)? DNR status @ -No What co-morbidities impacted this encounter? (DM, HTN, Smoking, COPD, CAD, Cancer, CVA, ARF, Chemo, Hep., AIDS, mental health diagnosis, sleep apnea, morbid obesity)? @ -Type 2 diabetes, hypertension, hyperlipidemia, sleep apnea, GERD, history of osteomyelitis with PICC line in place Was patient admitted / discharged? Hospital course, mention meds given and route, prescriptions, significant lab abnormalities, going to OR and other pertinent info. @ -Admitted. 50 year old male presenting to the ER for evaluation of PICC line malfunction. Vitals stable. Exam remarkable for PICC line to left upper extre mity. PICC line was flushed with normal saline by RN who reports there is a hole in the lumen of line. As patient complained of right calf edema laboratory studies and ultrasound venous Dopplers were obtained. Ultrasound venous Doppler negative for acute evidence of DVT. Laboratory studies showed a leukocytosis of 11.6 left shift, patient reports recent steroid use for back pain. Hemoglobin 10.1. Lactic 1.5. Patient was provided nighttime dose of cefazolin, cultures obtained. Given PICC line malfunction, admission was considered and accepted by Dr. Guerrier for IR replacement PICC line. Dr. Guerrier was contacted by my attending, Dr. Timmons. IR on consult. Cefazolin every 8 hours ordered. Patient movement in the ER. Patient agreeable for admission and admitted in stable condition for further evaluation and treatment. Case discussed with ED attending, Dr. Timmons Undiagnosed new problem with uncertain prognosis? @ -No Drug Therapy requiring intensive monitoring for toxicity (Heparin, Nitro, Insulin, Cardizem)? @ -No Were any procedures done? @ -No Diagnosis/symptom? @ -PICC line malfunction/calf swelling Acute, or Chronic, or Acute on Chronic? @ -Acute Uncomplicated (without systemic symptoms) or Complicated (systemic symptoms)? @ -Complicated Side effects of treatment? @ -No Exacerbation, Progression, or Severe Exacerbation? @ -No Poses a threat to life or bodily function? How? (Chest pain, USA, ID, pneumonia, PE, COPD, DKA, ARF, appy, cholecystitis, CVA, Diverticulitis, Homicidal, Suicidal, threat to staff... and all critical care pts) @ -Possibly - Lab Data Result diagrams: 05/09/25 00:12 05/09/25 00:12 Lab Results 05/09/25 05/09/25 05/09/25 Range/Units 00:12 00:12 00:12 WBC 11.69 H (4.50-10.00) 10*3/uL RBC 3.90 L (4.40-5.60) 10*6/uL Hgb 10.1 L (13.0-17.0) g/dL Hct 33.2 L (39.6-50.0) % MCV 85.1 (80.0-97.0) fL MCH 25.9 L (27.0-32.0) pg MCHC 30.4 L (32.0-37.0) g/dL Plt Count 254 (140-440) 10*3/uL MPV 10.8 (9.5-12.2) fL Immature Gran % (Auto) 0.9 % Neutrophils % 74.0 % Lymphocytes % 16.4 % Monocytes % 8.1 % Eosinophils % 0.3 % Basophils % 0.3 % Immature Gran # 0.10 H (0.00-0.04) 10*3/uL Neutrophils # 8.65 H (1.80-7.70) 10*3/uL Lymphocytes # 1.92 (0.90-5.00) 10*3/uL Monocytes # 0.95 (0.20-1.00) 10*3/uL Eosinophils # 0.03 L (0.04-0.35) 10*3/uL Basophils # 0.04 (0.00-0.10) 10*3/uL Sodium 136 L (137-145) mmol/L Potassium 5.3 H (3.5-5.1) mmol/L Chloride 99 (98-107) mmol/L Carbon Dioxide 30 (22-30) mmol/L Anion Gap 7 mmol/L BUN 34 H (9-20) mg/dL Creatinine 0.97 (0.66-1.25) mg/dL Est GFR (CKD-EPI)AfAm >90 (>60 ml/min/1.73 sqM) Est GFR (CKD-EPI)NonAf >90 (>60 ml/min/1.73 sqM) Glucose 124 H (74-99) mg/dL Plasma Lactic Acid Lauri 1.5 (0.7-2.0) mmol/L Calcium 10.1 (8.4-10.2) mg/dL Total Bilirubin 0.2 (0.2-1.3) mg/dL AST 16 L (17-59) U/L ALT 7 (4-49) U/L Alkaline Phosphatase 57 (38-126) U/L Total Protein 6.7 (6.3-8.2) g/dL Albumin 4.2 (3.5-5.0) g/dL - EKG Data -: EKG Interpreted by Me EKG Comments: EKG taken at 1: [address] showing [address] rhythm. No ST segment elevation depressions. No T wave inversions. Ventricular rate 81, MA interval 184, QRS duration 102, QT/QTc 345/383. - Radiology Data Radiology results: report reviewed, image reviewed Disposition Clinical Impression: Complication associated with peripherally inserted central catheter (PICC) Disposition: ADMITTED IP TO THIS HOSP Condition: Stable Referrals: Bryan Guerrier MD [Primary Care Provider] - 1-2 days Time of Disposition: 23:40
[2025-05-09 00:19] LABS: Basophils # (A) 0.04 10*3/uL (0.00-0.10); Basophils % (A) 0.3 %; Eosinophils # (A) 0.03 10*3/uL (0.04-0.35); Eosinophils % (A) 0.3 %; HCT 33.2 % (39.6-50.0); HGB 10.1 g/dL (13.0-17.0); Lymphocytes # (A) 1.92 10*3/uL (0.90-5.00); Lymphocytes % (A) 16.4 %; MCH 25.9 pg (27.0-32.0); MCHC 30.4 g/dL (32.0-37.0); MCV 85.1 fL (80.0-97.0); Mean Platelet Volume 10.8 fL (9.5-12.2); Monocytes # (A) 0.95 10*3/uL (0.20-1.00); Monocytes % (A) 8.1 %; Neutrophils # (A) 8.65 10*3/uL (1.80-7.70); Platelet Count 254 10*3/uL (140-440); WBC 11.69 10*3/uL (4.50-10.00)
[2025-05-09] MEDS: ceFAZolin 2 GM in DEXTROSE 5% IN WATER 50 ML IVPB ONE (00:44)
[2025-05-09 00:48] VITALS: RESP 16
[2025-05-09 00:50] LABS: ALT 7 U/L (4-49); AST 16 U/L (17-59); African American GFR (CKD) >90 (>60 ml/min/1.73 sqM); Albumin 4.2 g/dL (3.5-5.0); Alkaline Phosphatase 57 U/L (38-126); Anion Gap 7 mmol/L; Blood Urea Nitrogen 34 mg/dL (9-20); Calcium 10.1 mg/dL (8.4-10.2); Carbon Dioxide 30 mmol/L (22-30); Chloride 99 mmol/L (98-107); Glucose 124 mg/dL (74-99); Non-African American GFR(CKD) >90 (>60 ml/min/1.73 sqM); Potassium 5.3 mmol/L (3.5-5.1); Sodium 136 mmol/L (137-145); Total Bilirubin 0.2 mg/dL (0.2-1.3); Total Protein 6.7 g/dL (6.3-8.2)
[2025-05-09] MEDS: HYDROmorphone 1 MG/ML 1 ML SYRINGE IVP STA ×2 (00:53→02:03)
[2025-05-09] MEDS: ACETAMINOPHEN TAB 325 MG TAB PO STA (00:53)
[2025-05-09] MEDS: SODIUM CHLORIDE 0.9% 1,000 ML IV ONE (01:09)
[2025-05-09] MEDS: KETOROLAC 15 MG/ML 1 ML VIAL IVP STA (02:02)
[2025-05-09] MEDS ORDERED: NALOXONE 0.4 MG/ML 1 ML VIAL IV PRN (02:35)
--- NOTE | 2025-05-09 02:41 | US ---
EXAM: US Duplex Right Lower Extremity Veins CLINICAL HISTORY: ITS.REASON US Reason: calf edema TECHNIQUE: Real-time duplex ultrasound scan of the right lower extremity veins integrating B-mode two-dimensional vascular structure, Doppler spectral analysis, color flow Doppler imaging and compression. COMPARISON: No relevant prior studies available. FINDINGS: Deep veins: No DVT in the visualized common femoral, femoral, proximal deep femoral or popliteal veins. The veins demonstrate normal color flow, are normally compressible, with normal phasic flow and/or augmentation response. Superficial veins: No thrombus in the visualized great saphenous vein. Soft tissues: Soft tissue edema at the ankle. IMPRESSION: No evidence of acute DVT.
[2025-05-09] MEDS: SODIUM CHLORIDE 0.9% 1,000 ML IV SCH (02:50)
[2025-05-09] MEDS: HYDROmorphone 1 MG/ML 1 ML SYRINGE IVP PRN (04:47)
--- NOTE | 2025-05-09 04:49 | XR ---
EXAM: XR Chest, 1 View CLINICAL HISTORY: ITS.REASON XR Reason: pulled out picc line TECHNIQUE: Frontal view of the chest. COMPARISON: No relevant prior studies available. FINDINGS: Lungs: No consolidation or mass. Pleural space: No acute findings. Heart: cardiomegaly. Bones/joints: No acute findings. IMPRESSION: No acute cardiopulmonary process.
[2025-05-09] MEDS: ceFAZolin 2 GM in DEXTROSE 5% IN WATER 50 ML IVPB SCH (08:59)
[2025-05-09] MEDS ORDERED: CYCLOBENZAPRINE 10 MG TAB PO PRN (10:32)
[2025-05-09] MEDS: ALPRAZolam 1 MG TAB PO SCH (12:07)
[2025-05-09] MEDS: predniSONE 20 MG TAB PO SCH (12:07)
[2025-05-09] MEDS: lisinopriL 20 MG TAB PO SCH (12:07)
[2025-05-09] MEDS: ZINC SULFATE 220 MG CAP PO SCH (12:08)
[2025-05-09] MEDS: DIVALPROEX 500 MG TABLET.DR PO SCH (12:08)
[2025-05-09] MEDS: metFORMIN 500 MG TAB PO SCH (12:08)
[2025-05-09] MEDS: PANTOPRAZOLE 40 MG TABLET PO SCH (12:08)
[2025-05-09] MEDS: FERROUS SULFATE 325 MG TAB PO SCH (12:08)
[2025-05-09] MEDS: MAGNESIUM OXIDE 400 MG TAB PO SCH (12:08)
[2025-05-09] MEDS: amLODIPine 5 MG TAB PO SCH (12:08)
[2025-05-09] MEDS: FUROSEMIDE 40 MG TAB PO SCH (12:08)
[2025-05-09 15:57] VITALS: BP 151/83; PULSE 83; TEMP 97.5
[2025-05-09] MEDS ORDERED: DOCUSATE 100 MG CAP PO SCH (21:00)
[2025-05-09] MEDS ORDERED: CYCLOBENZAPRINE 10 MG TAB PO SCH (21:00)
[2025-05-10] MEDS ORDERED: POTASSIUM CHLORIDE ER 20 MEQ TAB.ER PO SCH (09:00)
--- NOTE | 2025-05-11 04:27 | HP ---
HISTORY AND PHYSICAL HISTORY: This is a 50-year-old, white male came into the hospital with a PICC line, got removed. He is admitted for 24 hours of placement of PICC line in for osteomyelitis of the leg. Seen by Dr. Okeefe. He stays on broad-spectrum antibiotics as he has history of DVT, PEs, sleep apnea, and hypertension. HOME MEDICINES: 1. Flexeril. 2. Xanax. 3. Norvasc. 4. Depakote. 5. Prilosec. 6. Humalog. He has insulin-dependent diabetes mellitus. 7. CHF, Lasix 40 daily. 8. Iron sulfate 325 daily. 9. Metformin 500 b.i.d. 10.Oxycodone 10 mg q.4 p.r.n. .. 11.Prednisone p.r.n. ALLERGIES: Penicillin. REVIEW OF SYSTEMS: A 14-point review of systems is negative except for mentioned in HPI. PHYSICAL EXAM: VITAL SIGNS: Reviewed. CARDIOVASCULAR: S1-S2. LUNGS: Scattered wheezing, rhonchi. ENDOCRINE: BMI is over 30. PSYCH: Fair mood and affect. HEMATOLOGY: Negative Homans. INTEGUMENT: Wound on the lower legs. ASSESSMENT AND PLAN: 1. Osteomyelitis, PICC line fell out and he is out of the PICC line. 2. Leukocytosis secondary to infection. 3. Acute on chronic anemia. 4. Hyperkalemia, hyponatremia, sleep apnea, asthma, chronic obstructive pulmonary disease. Continue current treatments. PICC line replaced and sent him home on more IV antibiotics per Dr. Okeefe's recommendations. MMODL / IJN: [id number] /
== END 2025-05-09 18:27 ==
LOC: EC 22:59 → 6NMEDSUR 05-09 02:59 → 1SOBS 05-09 03:20
PROVIDERS: ADMIT Family Medicine; ATTEND Family Medicine
DX: T82.9XXA Unspecified complication of cardiac and vascular prosthetic device, implant and graft, initial encounter (principal); Y82.8 Other medical devices associated with adverse incidents; E11.69 Type 2 diabetes mellitus with other specified complication; M86.9 Osteomyelitis, unspecified; D72.829 Elevated white blood cell count, unspecified; D64.9 Anemia, unspecified; E87.1 Hypo-osmolality and hyponatremia; E87.5 Hyperkalemia; J44.89 Other specified chronic obstructive pulmonary disease; G47.30 Sleep apnea, unspecified; E78.5 Hyperlipidemia, unspecified; K21.9 Gastro-esophageal reflux disease without esophagitis; F41.9 Anxiety disorder, unspecified; I11.0 Hypertensive heart disease with heart failure; I50.9 Heart failure, unspecified; F17.200 Nicotine dependence, unspecified, uncomplicated; Z85.47 Personal history of malignant neoplasm of testis; Z86.711 Personal history of pulmonary embolism; Z86.718 Personal history of other venous thrombosis and embolism; Z79.4 Long term (current) use of insulin; Z79.84 Long term (current) use of oral hypoglycemic drugs; Z79.899 Other long term (current) drug therapy; Z88.0 Allergy status to penicillin
CPT/HCPCS: 96374; 96376 ×2; 96361; 96365; 96375; 99284; 36415; 93005; 36573; 80053; 83605; 85025; 87040; 71045; 93971; G0378; C1751; J0690; J1171; J1885; J7512